=== PATIENT | female | born 1980 | race Caucasian/White ===

== ENCOUNTER 2016-12-04 02:37 | Day surgery (SDC) | payer OTHER ==
[2016-12-04] MEDS ORDERED: NS 0.9% 1000 ML* 1,000 ML IV ONE (03:23)
[2016-12-04 03:45] LABS: Add Diff/Slide Review? Slide Review Added; Comments Flag Yes; Hematocrit 36 % (35-47); Hemoglobin 12.2 g/dl (12.0-16.0); Mean Corpuscular HGB Conc 34 g/dl (31-36); Mean Corpuscular Hemoglobin 29 pg (27-31); Mean Corpuscular Volume 86 fL (80-97); Mean Platelet Volume 9 um3 (7.4-10.4); Red Blood Count 4.24 10^6/ul (4.0-5.4); Red Cell Distribution Width 15 % (10.5-15); White Blood Count 11.2 10^3/ul (3.5-10.8)
[2016-12-04 03:53] LABS: Albumin 3.9 g/dL (3.2-5.2); BUN/Creatinine Ratio 19.5 (8-20); C Reactive Protein 28.57 mg/L (< 5.00); Calcium 9.3 mg/dL (8.6-10.3); EGFR African American 102.6 (>60); EGFR Non-African American 79.8 (>60); Globulin 2.9 g/dL (2-4); Potassium 3.8 mmol/L (3.5-5.0); Total Bilirubin 1.1 mg/dL (0.2-1.0); Total Protein 6.8 g/dL (6.4-8.9)
[2016-12-04 04:28] LABS: Urine Bacteria Absent (Absent); Urine Bilirubin Negative (Negative); Urine Glucose Negative (Negative); Urine Nitrite Negative (Negative)
--- NOTE | 2016-12-04 05:32 | ED ---
Mulugeta Tello Aidan, scribed for Don Madera on 12/04/16 at 0347 . Abdominal Pain/Female - HPI Summary HPI Summary: 36 y/o female presents to the ED with a complaint of acute, constant, moderate, right-sided abdominal pain that began 2 days ago and became much more severe last night. Associated symptoms include nausea and vomiting last night and 2 nights ago. The patient is 8 weeks and had her last menstrual period on October 09. Denies any vaginal bleeding or discharge. Hx of cholecystectomy. - History of Current Complaint Chief Complaint: EDAbdPain Stated Complaint: 8WKS PREG//ADB PAIN Time Seen by Provider: 12/04/16 03:05 Hx Obtained From: Patient, Family/Mold Hoister Hx Last Menstrual Period: October 09 ?: Yes Onset/Duration: Sudden Onset, Lasting Days, Still Present Timing: Constant Severity Initially: Moderate Severity Currently: Moderate Pain Intensity: 8 Pain Scale Used: 0-10 Numeric Location: Discrete At: RUQ, Discrete At: RLQ Radiates: No Character: Sharp Aggravating Factor(s): Other: - unknown Alleviating Factor(s): Other: - unknown Associated Signs and Symptoms: Positive: Nausea, Vomiting - Risk Factors Ovarian Torsion Risk Factor: Reproductive Age Allergies/Adverse Reactions: Allergies Allergy/AdvReac Type Severity Reaction Status Date / Time Penicillin G Allergy Unknown Hives Verified 05/16/16 21:55 Sulfa Drugs Allergy Unknown Hives Verified 05/16/16 21:55 PMH/Surg Hx/FS Hx/Imm Hx Respiratory History: Reports: Hx Asthma Psychiatric History: Reports: Hx Anxiety - Surgical History Surgery Procedure, Year, and Place: cholecystectomy Infectious Disease History: No Infectious Disease History: Denies: Traveled Outside the [place] in Last 30 Days - Family History Known Family History: Positive: Hypertension - Social History Occupation: Employed Full-time Lives: With Family Alcohol Use: None Substance Use Type: Reports: None Smoking Status (MU): Never Smoked Tobacco Review of Systems Constitutional: Negative Eyes: Negative ENT: Negative Cardiovascular: Negative Respiratory: Negative Positive: Abdominal Pain, Vomiting, Nausea. Negative: Diarrhea Genitourinary: Negative Musculoskeletal: Negative Skin: Negative Neurological: Negative Psychological: Normal All Other Systems Reviewed And Are Negative: Yes Physical Exam Triage Information Reviewed: Yes Vital Signs On Initial Exam: Initial Vitals Temp Pulse Resp BP Pulse Ox 98.2 F 108 20 125/81 98 12/04/16 02:42 12/04/16 02:42 12/04/16 02:42 12/04/16 02:42 12/04/16 02:42 Vital Signs Reviewed: Yes Appearance: Positive: Well-Appearing, No Pain Distress Skin: Positive: Warm, Skin Color Reflects Adequate Perfusion, Dry Head/Face: Positive: Normal Head/Face Inspection Eyes: Positive: EOMI, BIB ENT: Positive: Normal ENT inspection Neck: Positive: Supple, Nontender Respiratory/Lung Sounds: Positive: Clear to Auscultation, Breath Sounds Present Cardiovascular: Positive: RRR, Pulses are Symmetrical in both Upper and Lower Extremities Abdomen Description: Positive: Soft. Negative: Nontender - tenderness in RLQ and RUQ Bowel Sounds: Positive: Present Musculoskeletal: Positive: Strength/ROM Intact Neurological: Positive: Sensory/Motor Intact, Alert, Oriented to Person Place, Time Psychiatric: Positive: Affect/Mood Appropriate AVPU Assessment: Alert - Mary Coma Scale Coma Scale Total: 15 Diagnostics - Vital Signs Vital Signs Temp Pulse Resp BP Pulse Ox 12/04/16 03:00 103 128/76 95 12/04/16 02:54 123 96 12/04/16 02:52 110/53 12/04/16 02:42 98.2 F 108 20 125/81 98 - Laboratory Result Diagrams: 12/04/16 03:15 12/04/16 03:15 Lab Statement: Any lab studies that have been ordered have been reviewed, and results considered in the medical decision making process. - Ultrasound No standard instances Ultrasound Interpretation: Positive (See Comments) - TRANSVAGINAL US FINDINGS: THERE IS NO IUP. THERE IS A LIVE RIGHT TUBAL ECTOPIC WITH ESTIMATED AGE 7 WEEKS 5 DAYS AND HEART RATE OF 165 BEATS PER MINUTE. 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 Associated symptoms include nausea and vomiting last night and 2 nights ago. The patient is 8 weeks and had her last menstrual period on October 09. Denies any vaginal bleeding or discharge. Hx of cholecystectomy. According to Dr. Selby, radiology results indicated a ruptured ectopic . The patient will be admitted to Dr. Selby for supervision. - Diagnoses Provider Diagnoses: Ruptured ectopic - Provider Notifications Discussed Care Of Patient With: Dr. Selby (RAG GRADER) Time Discussed With Above Provider: 04:19 - Dr. Selby informed Dr. Madera that the radiology results reveal a ruptured ectopic . The patient will be admitted to Dr. Selby. - Critical Care Time Critical Care Time: 30-74 min - ruptured ectopic Discharge - Discharge Plan Condition: Stable Disposition: ADMITTED TO [facility] Referrals: Blair Hodges MD [Primary Care Provider] - The documentation as recorded by the Mulugeta maharaj Aidan accurately reflects the service I personally performed and the decisions made by Santy yoder Emmanuel.
[2016-12-04] MEDS ORDERED: Succinylcholine* 20 MG/ML 10 ML VIAL ONE (05:44)
[2016-12-04] MEDS ORDERED: fentaNYL* 50 MCG/ML 2 ML VIAL (100 MCG VIAL) ONE ×3 (05:44→09:42)
[2016-12-04] MEDS ORDERED: Midazolam* 1 MG/ML 2 ML VIAL (2 MG) ONE (05:44)
[2016-12-04] MEDS ORDERED: Propofol* 10 MG/ML 20 ML BTL IV PUSH ONE (05:44)
[2016-12-04] MEDS ORDERED: Dexamethasone IV* 4 MG/ML 1 ML (4 MG) ONE ×2 (06:03)
[2016-12-04] MEDS ORDERED: Atracurium* 10 MG/ML 10 ML VIAL ONE (06:03)
[2016-12-04] MEDS ORDERED: Bupivacaine 0.25% SDV* 30 ML ONE (06:16)
[2016-12-04] MEDS ORDERED: oxyCODONE TAB* 5 MG TAB PO PRN (06:49)
[2016-12-04] MEDS ORDERED: Ketorolac INJ* 30 MG/ML 1 ML VIAL IV PRN (06:49)
[2016-12-04] MEDS ORDERED: Ondansetron INJ* 2 MG/ML VIAL IV PRN ×2 (06:49→07:58)
[2016-12-04] MEDS ORDERED: HYDROcodone/ACETAMIN 5-325 MG* 1 TAB PO PRN (06:49)
[2016-12-04] MEDS ORDERED: fentaNYL* 50 MCG/ML 2 ML VIAL (100 MCG VIAL) IV PRN (06:49)
[2016-12-04] MEDS ORDERED: diPHENhydraMINE IV* 50 MG/ML 1 ml VIAL (BENADRYL) IV PRN (06:49)
[2016-12-04] MEDS ORDERED: HYDROmorphone INJ* 1 MG/ML CARPUJECT SYRINGE IV PRN (06:49)
[2016-12-04] MEDS ORDERED: Ondansetron INJ* 2 MG/ML VIAL ONE ×2 (06:56→09:46)
[2016-12-04] MEDS ORDERED: Ibuprofen TAB* 600 MG PO PRN (07:47)
[2016-12-04] MEDS ORDERED: oxyCODONE/Acetamin 5/325 MG* TAB PO PRN ×2 (07:48→08:00)
--- NOTE | 2016-12-04 07:51 | RAD ---
HISTORY: Abdominal pain in a female COMPARISONS: No comparison pelvic ultrasounds from this TECHNIQUE: Multiple transverse and longitudinal ultrasound images were obtained of the pelvis using grayscale, color flow, spectral and M-mode sonographic imaging. FINDINGS: UTERUS: The uterus is normal in shape, size, contour, and echotexture. GESTATION: In the vicinity of the right adnexa/right cornua, there is a gestational sac with a single live intrauterine . The pole measures 1.4 cm corresponding to a gestational age of 7 weeks and 5 days. A yolk sac is visualized. No movement is observed. The cardiac activity measures 165 bpm. There is hyperechogenic fluid surrounding the adnexa and in the cul-de-sac. RIGHT OVARY: The right ovary measures 3.6 x 2.8 x 3.8 cm. An anechoic and avascular structure measuring up to 2.2 cm in the right ovary is most consistent with a corpus luteum. LEFT OVARY: The left ovary is not discretely visualized. IMPRESSION: A gestational sac in the right adnexa/right cornua is consistent with ectopic . No gestational sac is identified in the endometrial lumen. Hyperdense fluid in the cul-de-sac indicates partial rupture of the patient's likely ectopic .
[2016-12-04] MEDS ORDERED: Hydrocodone/APAP 5/300 (NF) TAB PO PRN (08:25)
[2016-12-04] MEDS ORDERED: HYDROcodone/ACETAMIN 5-325 MG* 1 TAB ONE (09:42)
[2016-12-04] MEDS ORDERED: Ketorolac INJ* 30 MG/ML 1 ML VIAL ONE (09:46)
[2016-12-04 10:00] VITALS: BP 113/66
[2016-12-04] MEDS ORDERED: PROCHLORPERAZINE INJ 5 MG/ML 2 ML VIAL ONE (10:14)
--- NOTE | 2016-12-04 21:23 | OP ---
DATE OF OPERATION: 12/04/16 [facility] DATE OF : 84 SURGEON: Marcia Selby MD LADLE BUILDER: Taryn Langston MD ANESTHESIOLOGIST: Dr. Otoole. ANESTHESIA: General endotracheal anesthesia. PRE-OP DIAGNOSIS: Right ectopic . POST-OP DIAGNOSIS: Ruptured right ectopic . OPERATIVE PROCEDURE: Laparoscopic right salpingectomy. ESTIMATED BLOOD LOSS: Intraoperatively less than 50 cc; however, there was hemoperitoneum. The cul-de-sac was full of blood and clot and there was blood and clot throughout the abdomen on laparoscopy. URINE OUTPUT: 200 cc. PATHOLOGY SPECIMEN: Right fallopian tube with ectopic. COMPLICATIONS: None. COUNTS: Sponge, lap, and needle counts were correct x2. FINDINGS: A midline anteverted uterus. Right fallopian tube with large ectopic filling the entire ampulla and extending towards the isthmus with active bleeding. Normal-appearing right ovary. Normal-appearing left fallopian tube. Normal-appearing left ovary. Normal-appearing appendix. Gallbladder surgically absent. CONDITION: The patient tolerated the procedure well and was brought to the recovery room in stable condition. DESCRIPTION OF PROCEDURE: The patient was brought to the operating room and general anesthesia was found to be adequate. The patient was prepped and draped in the usual sterile fashion in a dorsal lithotomy position. Exam under anesthesia was performed. A speculum was placed in the vagina and a Hulka clamp was usually placed on the uterus. A Herrmann catheter was placed under sterile condition. A 10-mm skin incision was made in the infraumbilical fold after Marcaine was instilled. The fascia was identified, grasped between 2 Gurpreet clamps, and incised. The fascia was tagged with 0-Vicryl and UR6 needle. The blunt Mary 10-mm trocar and sleeve were placed. Correct placement was confirmed with the laparoscope. The patient was placed in Trendelenburg position. A 5-mm skin incision was made 2-cm above the symphysis pubis. Marcaine was instilled. A 5-mm trocar and sleeve were placed under direct visualization. A 5-mm skin incision was made in the right lower quadrant after Marcaine was instilled. Another 5-mm trocar and sleeve were placed in the right lower quadrant. The fallopian tube was identified and active bleeding was noted. The fallopian tube was excised using the LigaSure. The fallopian tube with ectopic content was placed in the endobag and removed under direct visualization. Excellent hemostasis was noted at the site. The hemoperitoneum was suctioned as much as possible using the suction real estate investor. Once again hemostasis was observed at the surgical site. The two 5-mm sleeves were removed under direct visualization. The 10-mm trocar was removed with the laparoscopic in place. The fascia was closed using 0 Vicryl. No defect was palpated and the skin was closed 4-0 sutures. Steri-Strips were applied and the Hulka clamp was removed from the cervix. The Herrmann was removed and the patient was brought to the recovery room, awake and in stable condition. [id number]/[facility] #: [id number] OLEGARIO
== END 2016-12-04 05:21 | disposition home or self-care (01) ==
LOC: ED 02:37 → OR 05:21
PROVIDERS: ATTEND Obstetrics & Gynecology
DX: O00.10 Tubal pregnancy without intrauterine pregnancy (principal); J45.909 Unspecified asthma, uncomplicated; E66.01 Morbid (severe) obesity due to excess calories; Z68.42 Body mass index [BMI] 45.0-49.9, adult
CPT/HCPCS: 36415; 76817; 80053; 81003; 81015; 83690; 84702; 85025; 85610; 85730; 86140; 86850; 86900; 86901; 86922; 87086; 88305; J0330; J0780; J1100; J1885; J2250; J2405; J2704; J3010

== ENCOUNTER 2017-06-03 18:41 | Emergency (ER) | payer OTHER ==
--- NOTE | 2017-06-03 20:00 | ED ---
Jeanine Tello Edward, scribed for Jimy Saenz MD on 06/03/17 at 1916 . GI/ HPI - HPI Summary HPI Summary: 36 y/o female presents ED c/o blood after using bathroom this evening, thinks it is vag bleed around 06:00 today. Patient states there was only one incidence. The patient is 12-weeks currently. Patient had a miscarriage year ago. PMHx 2 cysts @ L ovary. - History of Current Complaint Chief Complaint: EDOBProblems Time Seen by Provider: 06/03/17 19:10 Stated Complaint: 12 WEEKS PREG, POSSILBE BLEEDING Hx Obtained From: Patient Onset/Duration: Started Hours Ago Pain Intensity: 0 Associated Signs and Symptoms: Positive: Hematuria - Allergy/Home Medications Allergies/Adverse Reactions: Allergies Allergy/AdvReac Type Severity Reaction Status Date / Time Penicillin G Allergy Unknown Hives Verified 06/03/17 19:16 Sulfa Drugs Allergy Unknown Hives Verified 06/03/17 19:16 Home Medications: Home Medications Advair Diskus 250-50* 06/03/17 [History] Albuterol HFA INHALER* 06/03/17 [History] FLUoxetine* 06/03/17 [History] PMH/Surg Hx/FS Hx/Imm Hx Previously Healthy: No Respiratory History: Reports: Hx Asthma History: Reports: Other Problems/Disorders - 2 L ovarian cysts Neurological History: Reports: Hx Migraine Psychiatric History: Reports: Hx Anxiety - Surgical History Surgery Procedure, Year, and Place: cholecystectomy Infectious Disease History: No Infectious Disease History: Denies: Traveled Outside the [place] in Last 30 Days - Family History Known Family History: Positive: Hypertension - Social History Alcohol Use: None Hx Substance Use: No Substance Use Type: Reports: None Hx Tobacco Use: No Smoking Status (MU): Never Smoked Tobacco Review of Systems Constitutional: Negative Eyes: Negative ENT: Negative Cardiovascular: Negative Respiratory: Negative Gastrointestinal: Negative Positive: hematuria - one incidence Musculoskeletal: Negative Skin: Negative Neurological: Negative Psychological: Normal All Other Systems Reviewed And Are Negative: Yes Physical Exam Triage Information Reviewed: Yes Vital Signs On Initial Exam: Initial Vitals Temp Pulse Resp BP Pulse Ox 97.6 F 125 16 115/68 96 06/03/17 18:47 06/03/17 18:47 06/03/17 18:47 06/03/17 18:47 06/03/17 18:47 Vital Signs Reviewed: Yes Appearance: Positive: No Pain Distress, Obese Skin: Positive: Warm Head/Face: Positive: Normal Head/Face Inspection Eyes: Positive: BIB ENT: Positive: Hearing grossly normal Neck: Positive: Supple Cardiovascular: Positive: RRR Abdomen Description: Positive: Nontender - gravid, Soft Bowel Sounds: Positive: Present Musculoskeletal: Positive: Strength/ROM Intact Neurological: Positive: Alert, Oriented to Person Place, Time Diagnostics - Vital Signs Vital Signs Temp Pulse Resp BP Pulse Ox 06/03/17 18:47 97.6 F 125 16 115/68 96 - Laboratory Lab Statement: Any lab studies that have been ordered have been reviewed, and results considered in the medical decision making process. - Ultrasound No standard instances Ultrasound Interpretation: Positive (See Comments) - 1. THERE IS A SINGLE VIABLE INTRAUTERINE WITH AN ESTIMATED GESTATIONAL AGE OF 12 WEEKS 5 DAYS. 2. SMALL CRESCENT-LIKE COLLECTIONS ADJACENT TO THE GESTATIONAL SAC SUGGESTIVE OF SUBCHORIONIC HEMATOMAS. Ultrasound Interpretation Completed By: Radiologist Re-Evaluation - Re-Evaluation First Eval Change: Improved - results d/w pt, no further bleeding GIGU Course/Dx - Course Assessment/Plan: 36 y/o female is 12 weeks and comes in with one incident of blood in urine. US shows 1. THERE IS A SINGLE VIABLE INTRAUTERINE WITH AN ESTIMATED GESTATIONAL AGE OF 12. WEEKS 5 DAYS.2. SMALL CRESCENT-LIKE COLLECTIONS ADJACENT TO THE GESTATIONAL SAC SUGGESTIVE OF. SUBCHORIONIC HEMATOMAS. . 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 - Diagnoses Provider Diagnoses: Threatened Discharge - Discharge Plan Condition: Stable Disposition: HOME Patient Education Materials: Threatened Miscarriage (ED) Referrals: Karissa Peñaloza CNM [Bill Peddler] - 3 Days (F/u in 2-3 days please) The documentation as recorded by the Jeanine maharaj Edward accurately reflects the service I personally performed and the decisions made by Dany yoder David, MD.
--- NOTE | 2017-06-03 20:59 | RAD ---
INDICATION: , vaginal bleeding. COMPARISON: There are no prior studies available for comparison. TECHNIQUE: Multiple real-time transvaginal images of the pelvis were obtained. FINDINGS: This exam demonstrates an early intrauterine . The heart rate was 179 beats per minute. There are 2 small crescent-shaped collections adjacent to the gestational sac which are near fluid echogenicity measuring 3.7 x 2.7 x 1.0 and 2.0 x 5.0 x 0.8 cm each suggestive of with small subchorionic hematomas. The crown-rump length measured 6.21 cm corresponding to an estimated gestational age of 12 weeks 5 days. The right ovary measured 2.6 x 1.3 x 2.0 cm. The left ovary measured 3.8 x 3.0 x 4.4 cm. There is a 2.6 x 2.5 x 2.9 cm cyst within the left ovary most consistent with a corpus luteum cyst. No free intraperitoneal fluid is seen. IMPRESSION: 1. THERE IS A SINGLE VIABLE INTRAUTERINE WITH AN ESTIMATED GESTATIONAL AGE OF 12 WEEKS 5 DAYS. 2. SMALL CRESCENT-LIKE COLLECTIONS ADJACENT TO THE GESTATIONAL SAC SUGGESTIVE OF SUBCHORIONIC HEMATOMAS.
[2017-06-03 21:30] VITALS: BP 121/76
== END 2017-06-03 21:26 | disposition home or self-care (01) ==
LOC: ED 18:41
DX: O20.0 Threatened abortion (principal); R31.9 Hematuria, unspecified; Z3A.12 12 weeks gestation of pregnancy
CPT/HCPCS: 36415; 76801; 84702; 99282

== ENCOUNTER 2017-12-11 08:01 | Inpatient (IN) | payer OTHER ==
[2017-12-11] MEDS ORDERED: Oxytocin in LR* 20 UNITS/1,000 ML BAG IVPB SCH (09:00)
[2017-12-11 09:36] LABS: ABS Basophils 0.1 10^3/ul (0-0.2); ABS Eosinophils 0.1 10^3/ul (0-0.6); ABS Lymphocytes 1.4 10^3/ul (1.0-4.8); ABS Monocytes 0.6 10^3/ul (0-0.8); ABS Nucleated RBC 0 10^3/ul; Eosinophil % 0.7 % (0-6); Hematocrit 37 % (35-47); Hemoglobin 12.8 g/dl (12.0-16.0); Lymphocyte % 17.6 % (25-47); Mean Corpuscular HGB Conc 35 g/dl (31-36); Mean Corpuscular Hemoglobin 31 pg (27-31); Mean Corpuscular Volume 90 fL (80-97); Mean Platelet Volume 9 um3 (7.4-10.4); Nucleated Red Blood Cells % 0.1; Platelet Count 214 10^3/ul (150-450); Red Blood Count 4.12 10^6/ul (4.0-5.4); Red Cell Distribution Width 16 % (10.5-15); White Blood Count 8.1 10^3/ul (3.5-10.8)
[2017-12-11] MEDS ORDERED: Witch Hazel PAD* JAR TOPICAL PRN (16:26)
[2017-12-11] MEDS ORDERED: Dibucaine 1% 28.35 GM TUBE PR PRN (16:26)
[2017-12-11] MEDS ORDERED: Glycerin ADULT SUPP PR PRN (16:26)
[2017-12-11] MEDS ORDERED: Acetaminophen TAB* 325 MG PO PRN (16:26)
[2017-12-11] MEDS: Simethicone TAB* 80 MG TAB.CHEW PO SCH (17:30)
[2017-12-11] MEDS: Docusate CAP* 100 MG PO SCH (20:49)
[2017-12-11] MEDS: Ibuprofen TAB* 600 MG PO PRN (20:56)
[2017-12-12] MEDS: Ibuprofen TAB* 600 MG PO PRN ×4 (04:43→22:17)
[2017-12-12 08:13] LABS: ABS Basophils 0.1 10^3/ul (0-0.2); ABS Eosinophils 0.1 10^3/ul (0-0.6); ABS Lymphocytes 1.9 10^3/ul (1.0-4.8); ABS Monocytes 0.7 10^3/ul (0-0.8); ABS Neutrophils 7.7 10^3/ul (1.5-7.7); ABS Nucleated RBC 0 10^3/ul; Eosinophil % 0.6 % (0-6); Hematocrit 37 % (35-47); Hemoglobin 12.5 g/dl (12.0-16.0); Lymphocyte % 18.3 % (25-47); Mean Corpuscular HGB Conc 34 g/dl (31-36); Mean Corpuscular Hemoglobin 31 pg (27-31); Mean Corpuscular Volume 90 fL (80-97); Mean Platelet Volume 9 um3 (7.4-10.4); Nucleated Red Blood Cells % 0; Platelet Count 196 10^3/ul (150-450); Red Blood Count 4.09 10^6/ul (4.0-5.4); Red Cell Distribution Width 16 % (10.5-15); White Blood Count 10.5 10^3/ul (3.5-10.8)
[2017-12-12] MEDS: Docusate CAP* 100 MG PO SCH ×3 (08:43→22:18)
[2017-12-12] MEDS ORDERED: Ferrous Gluconate TAB* 324 MG TAB PO SCH (09:00)
[2017-12-12] MEDS: Simethicone TAB* 80 MG TAB.CHEW PO SCH (22:18)
[2017-12-13] MEDS: Ibuprofen TAB* 600 MG PO PRN (03:58)
[2017-12-13] MEDS: Docusate CAP* 100 MG PO SCH (08:55)
[2017-12-13 11:32] VITALS: BP 134/77
== END 2017-12-13 12:54 | disposition home or self-care (01) | DRG 560 ==
LOC: MCHOBOUT 08:01 → MCHOB 08:58
PROVIDERS: ADMIT Midwife; ATTEND Midwife
PROC: 10E0XZZ Delivery of Products of Conception, External Approach (ICD-10-PCS; principal; 2017-12-11)
PROC: 4A1HXCZ Monitoring of Products of Conception, Cardiac Rate, External Approach (ICD-10-PCS; 2017-12-11)
PROC: 0HQ9XZZ Repair Perineum Skin, External Approach (ICD-10-PCS; 2017-12-11)
PROC: 3E033VJ Introduction of Other Hormone into Peripheral Vein, Percutaneous Approach (ICD-10-PCS; 2017-12-11)
DX: O70.0 First degree perineal laceration during delivery (principal); Z37.0 Single live birth; Z88.0 Allergy status to penicillin; Z88.2 Allergy status to sulfonamides; Z3A.39 39 weeks gestation of pregnancy
CPT/HCPCS: 36415; 85025; 86850; 86900; 86901; A9270-GY

== ENCOUNTER 2019-03-20 10:02 | Day surgery (SDC) | payer OTHER ==
[~2019-03-20 10:02] MED LIST: Buffered Lidocaine 1% SYRIN* 1 ML/SYRINGE INTRADERM ONE; Lactated Ringers 1000 ML Bag* 1,000 ML IV SCH
[2019-03-20] MEDS ORDERED: Clindamycin 900 MG IVPREMIX(* 900 MG/50 ML SDV IV ONE (10:21)
[2019-03-20] MEDS ORDERED: Buffered Lidocaine 1% SYRIN* 1 ML/SYRINGE INTRADERM ONE (10:57)
[2019-03-20] MEDS ORDERED: Ondansetron INJ* 2 MG/ML VIAL IV PRN (11:41)
[2019-03-20] MEDS ORDERED: diPHENhydraMINE IV* 50 MG/ML 1 ml VIAL (BENADRYL) IV PRN (11:41)
[2019-03-20] MEDS ORDERED: Levalbuterol 0.63MG/3ML NEB* UNIT OF USE INH PRN (11:41)
[2019-03-20] MEDS ORDERED: Acetaminophen TAB* 325 MG PO PRN (11:41)
[2019-03-20] MEDS ORDERED: PROCHLORPERAZINE INJ 5 MG/ML 2 ML VIAL IV PRN (11:41)
[2019-03-20] MEDS ORDERED: fentaNYL* 50 MCG/ML 2 ML VIAL (100 MCG VIAL) IV PRN (11:41)
[2019-03-20] MEDS ORDERED: Naloxone* 0.4 MG/ML 1 ML VIAL IV PRN (11:41)
[2019-03-20] MEDS ORDERED: Midazolam* 1 MG/ML 2 ML VIAL (2 MG) ONE ×2 (12:04→12:55)
[2019-03-20] MEDS ORDERED: Famotidine IV* 10 MG/ML 2 ML (20 mg) ONE (12:45)
[2019-03-20] MEDS ORDERED: Ondansetron INJ* 2 MG/ML VIAL ONE (12:59)
[2019-03-20] MEDS ORDERED: Propofol* 10 MG/ML 20 ML BTL ONE (12:59)
[2019-03-20] MEDS ORDERED: fentaNYL* 50 MCG/ML 2 ML VIAL (100 MCG VIAL) ONE (13:02)
[2019-03-20] MEDS ORDERED: Lidocaine 2% PF * 5 ML VIAL ONE (13:02)
[2019-03-20 14:20] VITALS: BP 106/69
--- NOTE | 2019-03-20 19:54 | OP ---
CC: Jimy Sawant MD; Dr. Payal Irene* OPERATIVE REPORT: DATE OF OPERATION: 03/20/19 - SDS DATE OF : 84 SURGEON: Jimy Sawant MD MACHINE PIE MAKER: None. ANESTHESIOLOGIST: [place]. ANESTHESIA: LMAC. 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 OPERATIVE PROCEDURE: Placement of left subclavian 8-Hebrew PowerPort. DESCRIPTION OF PROCEDURE: The patient was supine on the operating room table. After adequate intravenous sedation, compression stockings, Angie Hugger warmer, and intravenous antibiotics, the left chest was prepped with antiseptic, draped in a sterile fashion. Local infiltrative anesthesia was administered. Approximately 3 cm incision was created. Inferior pocket was created. Subclavian venipuncture was carried out. Guidewire was passed under fluoroscopic guidance. Catheter passed through the peel-away introducer, measured and cut at 27 cm. It was attached to the port, which was sutured into pocket. This was sutured with 2-0 Prolene. The pocket was closed with 3-0 and 5-0 Vicryl followed by Steri-Strips. The port has good blood return. It was flushed with saline solution and heparinized solution. She tolerated this well. She was brought to Recovery in good condition. No complications. No drains. No pathologic specimens. Sponge and instrument counts correct. Estimated blood loss was 10 mL. [id number]/[facility] #: [id number] MTDD
== END 2019-03-20 15:03 | disposition home or self-care (01) ==
LOC: OR 10:02
PROVIDERS: ATTEND Surgery
DX: C50.211 Malignant neoplasm of upper-inner quadrant of right female breast (principal); Z88.0 Allergy status to penicillin; J45.909 Unspecified asthma, uncomplicated; E66.01 Morbid (severe) obesity due to excess calories; Z68.42 Body mass index [BMI] 45.0-49.9, adult; F41.8 Other specified anxiety disorders; I89.0 Lymphedema, not elsewhere classified
CPT/HCPCS: 71045; 76000; 81025; C1788; J1642; J2250; J2405; J2704; J3010

== ENCOUNTER 2019-05-13 10:01 | Emergency (ER) | payer OTHER ==
[2019-05-13] MEDS ORDERED: Metoclopramide IV* 5 MG/ML 2 ML VIAL IV ONE (10:33)
[2019-05-13] MEDS ORDERED: NS 0.9% 1000 ML** 2,000 ML IV ONE (10:42)
--- NOTE | 2019-05-13 10:57 | ED ---
Complex/Multi-Sys Presentation - HPI Summary HPI Summary: This patient is a 38 year old F with breast cancer receiving chemo, [facility] accompanied by with a chief complaint of nausea, and vomiting since 05/10/19, and inability to keep down even liquids. Pt describes vomit as liquid, and either a darkish brown or a yellow color. Pt reports feeling weak, having diarrhea described as liquid and brownish, yellow in color. Pt denies fever, LYN, dizziness, chest pain, cough, leg pain, calf pain, hematuria, and dysuria. Pt was originally supposed to go in and see Kristen Perez NP for labs the afternoon of 05/13/19. However this morning pt started vomiting a darkish brown liquid again, and Kristen Perez NP told then to come to the ED. She reports vomiting 8-9 times yesterday, and has not been able to keep anything down including jello and water. She only feels abdominal pain while feeling nauseous or vomiting. The abdominal pain is not in the lower abdomen, it is more central. reports pt has been feeling pain in flanks. 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 Pt does not know the names. Pt receives treatments every Sunday, has had three treatments so far, her last treatment was 05/07/19. Pt is not getting any radiation, as the tumor is getting smaller. Her doctor is worried about her white blood cell counts, and she has been given shots to bring up WBC. Pts last menstrual period was at the beginning of April, and this month she had some spotting , but her period has not come. Pt is on a variety of medication. Pt last took Zofran,and Compazine last night. Pt is also on Prozac, Singulair, Advair, and Albuterol. She has also been taking Levaquin for the last week for an upper respiratory infection, (that she believes came from daughters in school), to prevent pneumonia. Pt has a PMHx of asthma, anxiety, depression, migraines, ovarian cyst, UTIs, miscarriage, ectopic , Lymphedema in left leg. Pt has a PSHx of left shoulder surgery, knee surgery, ear surgery, heart surgery, gallbladder removal. Per triage, patient rates the pain 0/10 in severity. Vital signs while in room: HR 110 bpm, BP 118/91, O2 sat 97%. Home Medications Medication Instructions Recorded Confirmed Type Montelukast Sodium TAB* [Singulair 10 mg PO DAILY 12/08/17 05/13/19 History 10 MG TAB*] Dexamethasone TAB* [Decadron TAB*] 8 mg PO BID 05/13/19 05/13/19 History Fluoxetine HCl 80 mg PO DAILY 05/13/19 05/13/19 History Ondansetron TAB* [Zofran 4 MG Tab*] 4 mg PO Q4H PRN 05/13/19 05/13/19 History Prochlorperazine TAB* [Compazine 10 mg PO Q6H PRN 05/13/19 05/13/19 History Tab*] levoFLOXacin [Levofloxacin] 500 mg PO DAILY 05/13/19 05/13/19 History - History Of Current Complaint Chief Complaint: EDNauseaVomitDiarrh Time Seen by Provider: 05/13/19 10:25 Hx Obtained From: Patient Onset/Duration: Sudden Onset, Lasting Days - 05/10/18, Still Present Timing: Intermittent, Lasting: - Vomiting 8-9x a day, Days Severity Currently: Mild Severity Initially: Mild Location: Pain At: - Lower abdominal pain Character: Dull Aggravating Factor(s): Food, Liquids Alleviating Factor(s): Nothing Associated Signs And Symptoms: Positive: Weakness, Nausea, Vomiting, Diarrhea, Abdominal Pain, Immunocompromised - on chemo therapy, 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 Negative: Headache , Cough, Chest Pain, Dysuria, Fever Related History: Other - breast cancer on chemo - Allergies/Home Medications Allergies/Adverse Reactions: Allergies Allergy/AdvReac Type Severity Reaction Status Date / Time Sulfa (Sulfonamide Allergy Severe Hives Verified 05/13/19 10:06 Antibiotics) Penicillins Allergy Intermediate Hives Verified 05/13/19 10:06 Home Medications: Home Medications Dexamethasone TAB* [Decadron TAB*] 8 mg PO BID 05/13/19 [History Confirmed 05/13] Fluoxetine HCl 80 mg PO DAILY 05/13/19 [History Confirmed 05/13/19] Ondansetron TAB* [Zofran 4 MG Tab*] 4 mg PO Q4H PRN 05/13/19 [History Confirmed 05/13/19] Prochlorperazine TAB* [Compazine Tab*] 10 mg PO Q6H PRN 05/13/19 [History Confirmed 05/13/19] PMH/Surg Hx/FS Hx/Imm Hx Previously Healthy: No Endocrine/Hematology History: Denies: Hx Diabetes, Hx Thyroid Disease Cardiovascular History: Reports: Other Cardiovascular Problems/Disorders - Lymphedema in left leg Denies: Hx Hypertension, Hx Pacemaker/ICD Respiratory History: Reports: Hx Asthma History: Reports: Other Problems/Disorders - 2 L ovarian cysts, UTIs, miscarriage twins, ectopic Pg. Denies: Hx Kidney Infection, Hx Renal Disease Musculoskeletal History: Reports: Hx Arthritis Sensory History: Denies: Hx Contacts or Glasses, Hx Hearing Aid Opthamlomology History: Denies: Hx Contacts or Glasses Neurological History: Reports: Hx Migraine Psychiatric History: Reports: Hx Anxiety Denies: Hx Depression, Hx Panic Disorder, Other Psychiatric Issues/Disorders - Cancer History Cancer Type, Location and Year: 03/07/19 Rt BREAST - on chemo 05/13/19 Date and Location of Last Treatment: 05/07/19 Hx Chemotherapy: Yes Hx Radiation Therapy: No - Surgical History Surgery Procedure, Year, and Place: CHOLECYSTECTOMY. Lt KNEE - ARTHROSCOPIC. DILLON EARS - SEVERAL EUSTACHIAN TUBES. Lt FOOT - BUNIONECTOMY. Rt BREAST - BIOPSY - W/ CLIP PLACEMENT. Left shoulder. heart surgery. cholecystectomy Hx Anesthesia Reactions: Yes - nausea with gas Infectious Disease History: No Infectious Disease History: Denies: Traveled Outside the [place] in Last 30 Days - Family History Known Family History: Positive: Hypertension - Social History Lives: With Family Alcohol Use: None Hx Substance Use: No Substance Use Type: Reports: None Hx Tobacco Use: No Smoking Status (MU): Never Smoked Tobacco Have You Smoked in the Last Year: No Review of Systems Positive: Fatigue Negative: Chest Pain Negative: Cough Positive: Abdominal Pain, Vomiting, Diarrhea, Nausea Negative: burning, dysuria, hematuria Positive: Other - Neg - leg pain, calf pain Skin: Negative Neurological: Other - Neg - dizziness Psychological: Normal All Other Systems Reviewed And Are Negative: Yes Physical Exam - Summary Physical Exam Summary: Appearance: Ill-appearing, minimal pain distress, well-nourished Skin: Warm, color reflects adequate perfusion, dry Head: Normal Head/Face inspection, atraumatic, minimal hair Eyes: Conjunctiva clear ENT: Normal inspection Neck: Supple, no nodes, no JVD Respiratory: Lungs clear, normal breath sounds, no respiratory distress Cardio: RRR, No murmur, pulses normal, brisk capillary refill Abdomen: Soft, nontender, no rebound, no guarding, no masses, non-distended, no CVAT Bowel sounds: Present Musculoskeletal: Strength Intact/ROM intact, no calf tenderness, no edema. Psychological: Normal Neuro: Alert, muscle tone normal, no focal defici Triage Information Reviewed: Yes Vital Signs On Initial Exam: Initial Vitals Temp Pulse Resp BP Pulse Ox 96.4 F 127 16 125/96 96 05/13/19 10:03 05/13/19 10:03 05/13/19 10:03 05/13/19 10:03 05/13/19 10:03 Vital Signs Reviewed: Yes Diagnostics - Vital Signs Vital Signs Temp Pulse Resp BP Pulse Ox 05/13/19 10:33 112 118/91 97 05/13/19 10:32 108 96 05/13/19 10:03 96.4 F 127 16 125/96 96 - Laboratory Result Diagrams: 05/13/19 10:59 05/13/19 10:59 Lab Statement: Any lab studies that have been ordered have been reviewed, and results considered in the medical decision making process. - Radiology CXR Radiology Interpretation Completed By: Radiologist Summary of Radiographic Findings: CXR reveals, per radiologist, IMPRESSION: #. No evidence for pneumonia. #. No evidence for acute intrathoracic disease. ED physician has reviewed this radiology report. Re-Evaluation - Re-Evaluation First Eval Re-Evaluation Time: 15:07 Change: Improved Comment: Discussed results with pt, instructed on bland diet. Pt looks much better and feels much better after IV antiemetics and IV fluids. Denies abd pain. Afebrile. Complex Multi-Symp Course/Dx Course Of Treatment: 38 yo F with breast CA undergoing chemo therapy presents with N,V,D and inability to keep down food or liquids since 05/10/19 despite Compazine and Zofran at home. Pt is on day 7 of Levaquin for a URI. Pts physical exam revealed a normal soft abdomen without tenderness. CXR reveals, per radiologist, IMPRESSION: No evidence for pneumonia. No evidence for acute intrathoracic disease. Blood work was obtained. The abnormalities include WBC is 2.7,(not neutropenic) Chloride is 98, Glucose is 128, Lactic Acid is 2.2, Calcium is 10.6, Magnesium is 1.6, Total Bilirubin is 2.40, AST is 52, ALT is 74 , and Amylase is 19. UA was obtained. The abnormalities include urine protein is 2+, urine blood is 1+, Ur Leukocyte Esterase is Trace, Urince WBC is 2+, Urine RBC is 2+, Ur Squamous Epith Cells is Present, Ur Renal Epithelial Cell is Present, Hyaline Casts is present, and Urine Glucose is 1+. In the ED course the patient was given Reglan 10 mg IV, Zofran Inj 8 mg IV, and 2L IV fluids. Discussed patient care with Kristen Perez NP and she recommended hydrating pt, and said she would observationally admit pt if needed. Kristen noted that the bilirubin and LFT's are higher than they have been and she noted the WBC count. Kristen agreed with DC'ing the Levaquin, which may be playing a role in pt's vomiting. Discussed results and bland diet,and plan to discharge with patient and her . The patient is agreeable with this plan. Pt medications reviewed this visit. (the 4 chemo meds not known). Nurses notes reviewed. Allergies noted. - Diagnoses Differential Diagnoses/HQI/PQRI: Urinary Tract Infection, Other - chemotherapy induced vomiting, Levaquin induced vomiting, gastroenteritis Provider Diagnoses: Nausea and vomiting, Breast cancer in female, Leukopenia, Chemotherapy follow- up examination - Physician Notifications Discussed Care Of Patient With: Kristen Perez Time Discussed With Above Provider: 13:48 Instructed by Provider To: Other - Discussed patient care with Kristen Perez NP and she recommended hydrating pt, and said she would observationally admit pt if needed. Discharge - Sign-Out/Discharge Documenting (check all that apply): Patient Departure - Discharge Patient Received Moderate/Deep Sedation with Procedure: No - Discharge Plan Condition: Stable Disposition: HOME Prescriptions: Ondansetron ODT TAB* [Zofran 4 MG Odt TAB*] 8 mg PO Q6H PRN #20 tab.odt PRN Reason: Nausea Patient Education Materials: Acute Nausea and Vomiting (ED) Print Language: MACEDONIAN Referrals: Payal Irene MD [Medical Doctor] - (as scheduled, call for an appointment ) Blair Hodges MD [Primary Care Provider] - Additional Instructions: Dr. Wilburn and Kristen both recommend that you stop the Levaquin. Follow and bland diet and hydrate as much as possible. Take zofran or compazine on a regular basis for the next few days. You may have a urinary tract infection. We will contact you if you need an antibiotic, based on those results. Kristen has reviewed your labs. Your white blood cell count is a bit diminished, and your bilirubin has increased a bit. They will talk to you about this at your next appointment. Return to the ER if you have any new or worsening symptoms. - Billing Disposition and Condition Condition: STABLE Disposition: Home - Attestation Statements Document Initiated by Kali: Yes Documenting Forrestibe: Leigha Land Provider For Whom Kali is Documenting (Include Credential): Dr. Samira Wilburn MD Scribe Attestation: Leigha Tello scribed for Dr. Samira Wilburn MD on 05/14/19 at 1959. Scribe Documentation Reviewed: Yes Provider Attestation: The documentation as recorded by the Leigha maharaj accurately reflects the service I personally performed and the decisions made by , Dr. Samira Wilburn MD Status of Kali Document: Viewed
[2019-05-13 11:14] LABS: Hematocrit 38 % (35-47); Hemoglobin 13.6 g/dL (12.0-16.0); Mean Corpuscular HGB Conc 36 g/dL (31-36); Mean Corpuscular Hemoglobin 31 pg (27-31); Mean Corpuscular Volume 86 fL (80-97); Mean Platelet Volume 8.1 fL (7.4-10.4); Platelet Count 234 10^3/uL (150-450); Red Blood Count 4.43 10^6 /uL (3.70-4.87); Red Cell Distribution Width 18 % (10-15); White Blood Count 2.7 10^3/uL (3.5-10.8)
[2019-05-13 11:23] LABS: Urine Appearance Clear; Urine Bacteria Absent (Absent); Urine Bilirubin Negative (Negative); Urine Blood 1+ (Negative); Urine Color Amber; Urine Glucose 1+(50 mg/dL) (Negative); Urine Ketones Negative (Negative); Urine Nitrite Negative (Negative); Urine Protein 2+(100 mg/dL) (Negative); Urine Red Blood Cell 2+(6-10/hpf) (Absent); Urine Renal Epithelial Cells Present (Absent); Urine Specific Gravity 1.021 (1.010-1.030); Urine Squamous Epithelial Cell Present (Absent); Urine Urobilinogen Negative (Negative); Urine White Blood Cell 2+(11-20/hpf) (Absent)
[2019-05-13 11:25] LABS: Activated Partial Thrombo Time 35.9 seconds (26.0-38.0); INR 1.13 (0.82-1.09)
[2019-05-13 11:36] LABS: HCG Pregnancy 2.67 mIU/mL
[2019-05-13 11:38] LABS: Albumin 4.7 g/dL (3.2-5.2); Albumin/Globulin Ratio 1.6 (1-3); BUN/Creatinine Ratio 19.1 (8-20); C Reactive Protein 7.86 mg/L (<8.01); Calcium 10.6 mg/dL (8.6-10.3); EGFR African American 86.8 (>60); EGFR Non-African American 71.8 (>60); Magnesium 1.6 mg/dL (1.9-2.7); Potassium 3.6 mmol/L (3.5-5.0); Total Bilirubin 2.4 mg/dL (0.2-1.0); Total Protein 7.7 g/dL (6.4-8.9)
[2019-05-13 12:14] LABS: ABS Eosinophils 0.1 10^3/ul (0-0.6); ABS Monocytes 0.2 10^3/ul (0-0.8); ABS Neutrophils 1.5 10^3/ul (1.5-7.7); Lymphocyte % 36.8 %; Nucleated Red Blood Cells % 0.1
[2019-05-13] MEDS ORDERED: Ondansetron INJ* 2 MG/ML VIAL IV ONE (13:34)
[2019-05-13 15:27] VITALS: BP 108/85
--- NOTE | 2019-05-16 15:10 | PN ---
Progress Note - Progress Note Date of Service: 05/13/19 Note: Urine culture growing >100k staph epidermidis. Spoke with pt. today at 1423. She reports she was being treated with levaquin for UTI but it was making her vomiting so it was dc. Will try treating with macrobid based on culture. Will f.u with PCP. Pt. agrees with plan.
== END 2019-05-13 15:26 | disposition home or self-care (01) ==
LOC: ED 10:01
DX: R11.2 Nausea with vomiting, unspecified (principal); C50.919 Malignant neoplasm of unspecified site of unspecified female breast; D72.819 Decreased white blood cell count, unspecified; Z79.899 Other long term (current) drug therapy
CPT/HCPCS: 36415; 71045; 80053; 81003; 81015; 82150; 82550; 83605; 83690; 83735; 84702; 85025; 85610; 85730; 86140; 87077; 87086; 87186; 96374; 96375; 99283; J2405; J2765

== ENCOUNTER 2019-06-26 22:19 | Emergency (ER) | payer OTHER ==
[2019-06-26 23:26] LABS: Hematocrit 32 % (35-47); Hemoglobin 11.2 g/dL (12.0-16.0); Mean Corpuscular HGB Conc 35 g/dL (31-36); Mean Corpuscular Hemoglobin 33 pg (27-31); Mean Corpuscular Volume 96 fL (80-97); Mean Platelet Volume 9.4 fL (7.4-10.4); Platelet Count 137 10^3/uL (150-450); Red Blood Count 3.38 10^6 /uL (3.70-4.87); Red Cell Distribution Width 21 % (10-15); White Blood Count 7.9 10^3/uL (3.5-10.8)
[2019-06-26] MEDS ORDERED: Ondansetron INJ* 2 MG/ML VIAL IV ONE (23:33)
[2019-06-26 23:37] LABS: Activated Partial Thrombo Time 34.4 seconds (26.0-38.0); INR 1.13 (0.82-1.09)
[2019-06-26 23:38] LABS: Albumin 4.9 g/dL (3.2-5.2); Albumin/Globulin Ratio 1.7 (1-3); BUN/Creatinine Ratio 10.6 (8-20); Calcium 10.7 mg/dL (8.6-10.3); EGFR African American 59.8 (>60); EGFR Non-African American 49.4 (>60); Globulin 2.9 g/dL (2-4); Total Bilirubin 1.6 mg/dL (0.2-1.0); Total Protein 7.8 g/dL (6.4-8.9)
[2019-06-26 23:40] LABS: Troponin I 0.01 ng/mL (<0.04)
[2019-06-26] MEDS ORDERED: Lactated Ringers 1000 ML Bag* 1,000 ML IV ONE (23:45)
--- NOTE | 2019-06-26 23:47 | ED ---
Shortness of Breath - HPI Summary HPI Summary: The patient is a 38 y/o F presenting to [facility] accompanied by family with a chief complaint of SOB worsening throughout the day while at rest and with exertion. She reports that she has been unable to walk far secondary to difficulty with breathing. She endorses N/V as well. Patient is currently getting chemotherapy for breast cancer. Last chemo treatment was 06/18/19. She is not on blood thinners. Recent labs have shown her hemoglobin trending downwards and her platelet levels have been fluctuating up and down. She has also been having left leg swelling, but none today. US for clots was done after last treatment on 06/18. No FMHx of breast cancer. Patient has had normal urination and bowel movements. Recent PET scan was negative. No Hx of metastatic disease. Hx of lymphedema. On triage, pain is denied, nothing is noted to aggravate/ alleviate Sx. Home medications and allergies are reviewed. - History of Current Complaint Chief Complaint: EDShortnessOfBreath Time Seen by Provider: 06/26/19 23:19 Hx Obtained From: Patient Onset/Duration: Lasting Days Current Severity: None Aggravating Factors: Nothing Alleviating Factors: Nothing Associated Signs & Symptoms: Edema - since resolved - Allergy/Home Medications Allergies/Adverse Reactions: Allergies Allergy/AdvReac Type Severity Reaction Status Date / Time Sulfa (Sulfonamide Allergy Severe Hives Verified 05/13/19 10:06 Antibiotics) Penicillins Allergy Intermediate Hives Verified 05/13/19 10:06 Home Medications: Home Medications Diphenoxylat/Atrop 2.5-0.025M* [Lomotil TAB*] 2 tab PO TID PRN 06/26/19 [ History Confirmed 06/26/19] Fluticasone-Salmeterol 500-50* [Advair Diskus 500-50*] 1 puff INH BID 06/26/19 [ History Confirmed 06/26/19] Magnesium Oxide TAB* [MagOx 400 TAB*] 400 mg PO DAILY 06/26/19 [History Confirmed 06/26/19] Meclizine TAB* [Antivert 12.5 TAB*] 25 mg PO TID PRN 06/26/19 [History Confirmed 06/26/19] PMH/Surg Hx/FS Hx/Imm Hx Endocrine/Hematology History: Denies: Hx Diabetes, Hx Thyroid Disease Cardiovascular History: Reports: Other Cardiovascular Problems/Disorders - Lymphedema in left leg Denies: Hx Hypertension, Hx Pacemaker/ICD Respiratory History: Reports: Hx Asthma History: Reports: Other Problems/Disorders - 2 L ovarian cysts, UTIs, miscarriage twins, ectopic Pg. Denies: Hx Kidney Infection, Hx Renal Disease Musculoskeletal History: Reports: Hx Arthritis, Other Musculoskeletal History - Lymphedema in left leg Sensory History: Denies: Hx Contacts or Glasses, Hx Hearing Aid Opthamlomology History: Denies: Hx Contacts or Glasses Neurological History: Reports: Hx Migraine Psychiatric History: Reports: Hx Anxiety Denies: Hx Depression, Hx Panic Disorder, Other Psychiatric Issues/Disorders - Cancer History Cancer Type, Location and Year: 03/07/19 Rt BREAST - on chemo 05/13/19 Hx Chemotherapy: Yes Hx Radiation Therapy: No - Surgical History Surgery Procedure, Year, and Place: CHOLECYSTECTOMY. Lt KNEE - ARTHROSCOPIC. DILLON EARS - SEVERAL EUSTACHIAN TUBES. Lt FOOT - BUNIONECTOMY. Rt BREAST - BIOPSY - W/ CLIP PLACEMENT. Left shoulder. heart surgery. cholecystectomy Hx Anesthesia Reactions: Yes - nausea with gas Infectious Disease History: No Infectious Disease History: Denies: Traveled Outside the [place] in Last 30 Days - Family History Known Family History: Positive: Hypertension - Social History Alcohol Use: None Hx Substance Use: No Substance Use Type: Reports: None Hx Tobacco Use: No Smoking Status (MU): Never Smoked Tobacco Have You Smoked in the Last Year: No Review of Systems Positive: Shortness Of Breath Positive: Vomiting, Nausea Genitourinary: Other - negative - abnormal BM and urination Negative: Edema All Other Systems Reviewed And Are Negative: Yes Physical Exam - Summary Physical Exam Summary: Constitutional: Well-developed, Well-nourished, Alert. Obese (-) Distressed Skin: Warm, Dry HENT: Normocephalic; Atraumatic Eyes: Conjunctiva normal Neck: Musculoskeletal ROM normal neck. (-) JVD, (-) Stridor, (-) Tracheal deviation Cardio: Rhythm regular, rate normal, Heart sounds normal; Intact distal pulses; The pedal pulses are 2+ and symmetric. Radial pulses are 2+ and symmetric. Pulmonary/Chest wall: Port access in left chest wall. Effort normal. (-) Respiratory distress, (-) Wheezes, (-) Rales Abd: Soft, (-) tenderness, (-) Distension, (-) Guarding, (-) Rebound Musculoskeletal: (+) Left calf tenderness (-) Edema Neuro: Alert, Oriented x3 Psych: Mood and affect Normal Triage Information Reviewed: Yes Vital Signs On Initial Exam: Initial Vitals Temp Pulse Resp BP Pulse Ox 96.8 F 123 18 131/94 98 06/26/19 22:21 06/26/19 22:21 06/26/19 22:21 06/26/19 22:21 06/26/19 22:21 Vital Signs Reviewed: Yes Diagnostics - Vital Signs Vital Signs Temp Pulse Resp BP Pulse Ox 06/26/19 23:22 97 18 121/90 95 06/26/19 22:21 96.8 F 123 18 131/94 98 - Laboratory Lab Results: Lab Results 06/26/19 06/26/19 06/26/19 Range/Units 22:45 22:45 22:45 WBC 7.9 (3.5-10.8) 10^3/uL RBC 3.38 L (3.70-4.87) 10^6 /uL Hgb 11.2 L (12.0-16.0) g/dL Hct 32 L (35-47) % MCV 96 (80-97) fL MCH 33 H (27-31) pg MCHC 35 (31-36) g/dL RDW 21 H (10-15) % Plt Count 137 L (150-450) 10^3/uL MPV 9.4 (7.4-10.4) fL Neut % (Auto) Pending Lymph % (Auto) Pending Morehouse % (Auto) Pending Eos % (Auto) Pending Baso % (Auto) Pending Absolute Neuts (auto) Pending Absolute Lymphs (auto) Pending Absolute Monos (auto) Pending Absolute Eos (auto) Pending Absolute Basos (auto) Pending Absolute Nucleated RBC Pending Nucleated RBC % Pending INR (Anticoag Therapy) 1.13 H (0.82-1.09) APTT 34.4 (26.0-38.0) seconds Sodium 137 (135-145) mmol/L Potassium Pending Chloride 97 L (101-111) mmol/L Carbon Dioxide 25 (22-32) mmol/L Anion Gap Pending BUN 13 (6-24) mg/dL Creatinine 1.23 H (0.51-0.95) mg/dL Est GFR ( Amer) 59.8 (>60) Est GFR (Non-Af Amer) 49.4 (>60) BUN/Creatinine Ratio 10.6 (8-20) Glucose 144 H (70-100) mg/dL Lactic Acid (0.5-2.0) mmol/L Calcium 10.7 H (8.6-10.3) mg/dL Total Bilirubin 1.60 H (0.2-1.0) mg/dL AST 84 H (13-39) U/L ALT 142 H (7-52) U/L Alkaline Phosphatase 142 H (34-104) U/L Troponin I 0.01 (<0.04) ng/mL Total Protein 7.8 (6.4-8.9) g/dL Albumin 4.9 (3.2-5.2) g/dL Globulin 2.9 (2-4) g/dL Albumin/Globulin Ratio 1.7 (1-3) 06/26/19 Range/Units 22:45 WBC (3.5-10.8) 10^3/uL RBC (3.70-4.87) 10^6 /uL Hgb (12.0-16.0) g/dL Hct (35-47) % MCV (80-97) fL MCH (27-31) pg MCHC (31-36) g/dL RDW (10-15) % Plt Count (150-450) 10^3/uL MPV (7.4-10.4) fL Neut % (Auto) Lymph % (Auto) Morehouse % (Auto) Eos % (Auto) Baso % (Auto) Absolute Neuts (auto) Absolute Lymphs (auto) Absolute Monos (auto) Absolute Eos (auto) Absolute Basos (auto) Absolute Nucleated RBC Nucleated RBC % INR (Anticoag Therapy) (0.82-1.09) APTT (26.0-38.0) seconds Sodium (135-145) mmol/L Potassium Chloride (101-111) mmol/L Carbon Dioxide (22-32) mmol/L Anion Gap BUN (6-24) mg/dL Creatinine (0.51-0.95) mg/dL Est GFR ( Amer) (>60) Est GFR (Non-Af Amer) (>60) BUN/Creatinine Ratio (8-20) Glucose (70-100) mg/dL Lactic Acid 1.7 (0.5-2.0) mmol/L Calcium (8.6-10.3) mg/dL Total Bilirubin (0.2-1.0) mg/dL AST (13-39) U/L ALT (7-52) U/L Alkaline Phosphatase (34-104) U/L Troponin I (<0.04) ng/mL Total Protein (6.4-8.9) g/dL Albumin (3.2-5.2) g/dL Globulin (2-4) g/dL Albumin/Globulin Ratio (1-3) Result Diagrams: 06/26/19 22:45 06/26/19 22:45 Lab Statement: Any lab studies that have been ordered have been reviewed, and results considered in the medical decision making process. - CT CHEST/THORAX CTA CT Interpretation Completed By: Radiologist Summary of CT Findings: IMPRESSION: 1. No visible acute pulmonary embolism. 2. No aortic dissection. THIS REPORT WAS REVIEWED BY DR. CH. - EKG 0002 Cardiac Rate: NL - rate of 88 BPM EKG Rhythm: Sinus Rhythm Summary of EKG Findings: EKG showed sinus rhythm with rate of 88 BPM, Q-waves in lead III, TWI in lead III. No STEMI. Course/Dx - Course Course Of Treatment: The patient is a 38 y/o F presenting [place] [facility] accompanied by family with a chief complaint of SOB worsening throughout the day while at rest and with exertion. She reports that she has been unable to walk far secondary to difficulty with breathing. She endorses N/V as well. Patient is currently getting chemotherapy for breast cancer. Last chemo treatment was . She is not on blood thinners. Recent labs have shown her hemoglobin trending downwards and her platelet levels have been fluctuating up and down. She has also been having left leg swelling, but none today. US for clots was done after last treatment on 06/18. On physical exam, left calf tenderness is noted. CTA CHEST/THORAX IMPRESSION: 1. No visible acute pulmonary embolism. 2. No aortic dissection. Labs showed a potassium of 2.7 and 1.3 magnesium. During ED course, patient was given potassium chloride 40 meq, potassium chloride 10 meq in 50 mls @ 50 mls/hr IV, four bags, Zofran 8 mg IV, magnesium sulfate 2 gm in 50 mls @ 50 mls/hr IVBP, lactated ringers and Pepcid 20 mg IV. Patient is signed out to Dr. Nascimento at 0700 06/27/19 shift change pending electrolyte replenishment and repeat labs. - Diagnoses Provider Diagnoses: Nausea and vomiting, Hyponatremia Discharge - Sign-Out/Discharge Documenting (check all that apply): Sign-Out Patient Signing out patient TO: Bill Nascimento - Discharge Plan Condition: Stable Referrals: Blair Hodges MD [Primary Care Provider] - - Billing Disposition and Condition Condition: STABLE - Attestation Statements Document Initiated by Scribe: Yes Documenting Scribe: Maki Barrow Provider For Whom Kali is Documenting (Include Credential): Dr. Jimy Ch MD Scribe Attestation: Maki Tello, scribed for Dr. Jimy Ch MD on 06/27 at 0711. Scribe Documentation Reviewed: Yes Provider Attestation: The documentation as recorded by the scribe, Maki Barrow accurately reflects the service I personally performed and the decisions made by me, Dr. Jimy Ch MD Status of Scribe Document: Viewed
[2019-06-26 23:50] LABS: Potassium 2.7 mmol/L (3.5-5.0)
[2019-06-27] MEDS ORDERED: Magnesium Sulfate 2 GM IV* 2 GM/50 ML BAG IVPB ONE (00:03)
[2019-06-27] MEDS ORDERED: Iodixanol* (CONTRAST) 320 MG/ML 100 ML SDV IV ONE (00:13)
[2019-06-27 00:15] LABS: ABS Lymphocytes 1.1 10^3/ul (1.0-4.8); ABS Monocytes 1.2 10^3/ul (0-0.8); ABS Neutrophils 5.7 10^3/ul (1.5-7.7); ABS Nucleated RBC 0.1 10^3/ul; Eosinophil % 0.1 %; Lymphocyte % 14.2 %; Nucleated Red Blood Cells % 1.6
[2019-06-27 00:18] LABS: Polychromasia 3+
[2019-06-27 00:26] LABS: Magnesium 1.3 mg/dL (1.9-2.7)
[2019-06-27] MEDS: Potassium Chlor TAB* 20 MEQ TAB.ER PO ONE ×2 (00:59→02:54)
[2019-06-27] MEDS: KCL 10 MEQ/50 ML IVPREMIX* 10 MEQ/50 ML BAG IV SCH ×4 (00:59→04:25)
[2019-06-27] MEDS ORDERED: Potassium Chloride* LIQUID 20 MEQ/15 ML UDC PO ONE (01:06)
[2019-06-27] MEDS ORDERED: Famotidine IV* 10 MG/ML 2 ML (20 mg) IV SLOW PU ONE (04:35)
[2019-06-27 07:17] LABS: BUN/Creatinine Ratio 10.7 (8-20); Calcium 9.8 mg/dL (8.6-10.3); EGFR African American 73.4 (>60); EGFR Non-African American 60.6 (>60); Magnesium 1.9 mg/dL (1.9-2.7); Potassium 3.5 mmol/L (3.5-5.0)
--- NOTE | 2019-06-27 07:30 | ED ---
Progress - Progress Note Progress Note: Patient is signed out from Dr. Nascimento at shift change 06/27/19 0700 pending electrolyte replenishment and repeat labs. Re-Evaluation - Re-Evaluation First Eval Re-Evaluation Time: 07:27 Change: Improved Comment: patient is feeling better. she has no complaints. since blood work is normal, patient will be discharged home with follow up from PCP Course/Dx - Course Course Of Treatment: Patient was signed out by Dr. Ch pending repeat for potassium level. Patient continues to feel better. Potassium level is 3.5 and magnesium is 1.9 which is within normal limits. Therefore the patient will be discharged home with follow-up with PCP. Patient is hemodynamically stable alert oriented 3 - Diagnoses Provider Diagnoses: Nausea and vomiting, Hypokalemia, Hypomagnesemia Discharge - Sign-Out/Discharge Documenting (check all that apply): Patient Departure - Discharge Patient Received Moderate/Deep Sedation with Procedure: No - Discharge Plan Condition: Stable Disposition: HOME Patient Education Materials: Hypokalemia (ED), Acute Nausea and Vomiting (ED), Hypomagnesemia (ED) Referrals: Blair Hodges MD [Primary Care Provider] - 3 Days Additional Instructions: Follow up with your primary care provider in 3 days. Return to the Emergency Department for new or worsening symptoms. - Attestation Statements Document Initiated by Scribe: Yes Documenting Scribe: Svitlana Sadler Provider For Whom Forrestibe is Documenting (Include Credential): Bill Nascimento MD Scribe Attestation: Svitlana Tello, scribed for Bill Nascimento MD on 06/27/19 at 1845. Status of Scribe Document: Ready
[2019-06-27 08:07] VITALS: BP 130/97
== END 2019-06-27 08:04 | disposition home or self-care (01) ==
LOC: ED 22:19
DX: R11.2 Nausea with vomiting, unspecified (principal); E87.6 Hypokalemia; E83.42 Hypomagnesemia; E87.1 Hypo-osmolality and hyponatremia; J45.909 Unspecified asthma, uncomplicated; F41.9 Anxiety disorder, unspecified; Z88.0 Allergy status to penicillin; Z88.2 Allergy status to sulfonamides; Z79.899 Other long term (current) drug therapy
CPT/HCPCS: 36415; 71275; 80048; 80053; 82803; 83605; 83735; 84484; 85025; 85610; 85730; 87040; 93005; 96365; 96366; 96375; 99285; A9270-GY; J1642; J2405; J3475; J3480; Q9967

== ENCOUNTER 2019-10-24 05:57 | Inpatient (IN) | payer OTHER ==
[~2019-10-24 05:57] MED LIST changes: -Lactated Ringers 1000 ML Bag* 1,000 ML IV SCH
[2019-10-24] MEDS ORDERED: Sodium Citrate/Citric Acid* 15 ML UDC PO ONE (06:00)
[2019-10-24] MEDS ORDERED: Sodium Citrate/Citric Acid* 15 ML UDC ONE (06:29)
[2019-10-24] MEDS ORDERED: Scopolamine 1.5 mg* PATCH ONE (06:29)
[2019-10-24] MEDS ORDERED: Dexamethasone IV* 4 MG/ML 1 ML (4 MG) ONE (06:29)
[2019-10-24] MEDS ORDERED: Heparin VIAL(*) 5000 UNITS/ML VIAL (FIVE THOUSAND) ONE (06:29)
[2019-10-24] MEDS ORDERED: Ondansetron INJ* 2 MG/ML VIAL ONE (06:29)
[2019-10-24] MEDS ORDERED: Clindamycin 900 MG/D5W BAG(*) 900 MG/50 ML BAG IVPB ONE (06:30)
[2019-10-24] MEDS ORDERED: Povidone Iodine 5% OPTH* 30 ML BTL ONE (06:44)
[2019-10-24] MEDS ORDERED: ceFAZolin VIAL(*) VIAL ONE (06:44)
[2019-10-24] MEDS ORDERED: Gentamicin ADULT (*) 40 MG/ML VIAL (2 ML VIAL = 80 MG) ONE (06:44)
[2019-10-24] MEDS ORDERED: Bacitracin INJECTION* 50,000 UNITS ONE (06:45)
[2019-10-24] MEDS ORDERED: Bupivacaine 0.25% SDV* 30 ML ONE (06:45)
[2019-10-24] MEDS: Lactated Ringers 1000 ML Bag* 1,000 ML IV SCH ×4 (06:47→23:21)
[2019-10-24] MEDS ORDERED: fentaNYL* 50 MCG/ML 5 ML VIAL (250 MCG VIAL) ONE (07:25)
[2019-10-24] MEDS ORDERED: Rocuronium* 10 MG/ML VIAL ONE (07:26)
[2019-10-24] MEDS ORDERED: Propofol* 10 MG/ML 20 ML BTL ONE (07:26)
[2019-10-24] MEDS ORDERED: Lidocaine 2% PF * 5 ML VIAL ONE (07:26)
[2019-10-24] MEDS ORDERED: Midazolam* 1 MG/ML 2 ML VIAL (2 MG) ONE (07:26)
[2019-10-24] MEDS ORDERED: DiMENhydriNATE IV* 50 MG/ML VIAL IV PUSH PRN (07:39)
[2019-10-24] MEDS ORDERED: Acetaminophen IV 1GM/100ML * 1,000 MG/100 ML VIAL IVPB ONE (07:39)
[2019-10-24] MEDS ORDERED: Naloxone* 0.4 MG/ML 1 ML VIAL IV PRN (07:39)
[2019-10-24] MEDS ORDERED: KETAMINE HCL* 50 MG/ML 10 ML VIAL ONE (08:16)
--- NOTE | 2019-10-24 10:44 | BRIEFOPN ---
Brief Operative/Procedure Note - Operation Details Pre-Op Diagnosis: right breast cancer Post-Op Diagnosis: same Procedures: Right Mastectomy and axillary dissection Surgeon(s)/Proceduralists: Surgeon: Carrillo. Asst: Zoey Anesthesia: general Estimated Blood Loss: 100cc Findings: see dictation Specimen(s)/Culture(s) Description: Right breast and axillary contents Complications: none
[2019-10-24] MEDS ORDERED: HYDROmorphone INJ1* 1 MG/ML SYRINGE IV PRN (10:50)
[2019-10-24] MEDS ORDERED: HYDROmorphone INJ1* 1 MG/ML SYRINGE IV SLOW PU PRN (10:50)
[2019-10-24] MEDS ORDERED: Ondansetron INJ* 2 MG/ML VIAL IV PRN (10:50)
[2019-10-24] MEDS ORDERED: ceFAZolin 2 GM PREMIX in ORs 2 GM/50 ML BAG IVPB SCH (12:00)
[2019-10-24] MEDS ORDERED: Acetaminophen IV 1GM/100ML * 100 ML ONE (12:15)
[2019-10-24] MEDS ORDERED: fentaNYL* 50 MCG/ML 2 ML VIAL (100 MCG VIAL) ONE ×3 (12:29→13:30)
[2019-10-24] MEDS: fentaNYL* 50 MCG/ML 2 ML VIAL (100 MCG VIAL) IV PRN ×4 (12:31→13:04)
[2019-10-24] MEDS ORDERED: HYDROmorphone INJ1* 1 MG/ML SYRINGE ONE (13:09)
[2019-10-24] MEDS: Ketorolac INJ* 30 MG/ML 1 ML VIAL IV PRN ×2 (14:32→22:08)
[2019-10-24] MEDS: Heparin VIAL(*) 5000 UNITS/ML VIAL (FIVE THOUSAND) SUBCUT SCH ×2 (14:41→22:04)
[2019-10-24] MEDS: Mometasone/Formoter 200/5 MDI INH SCH ×2 (16:13→20:09)
--- NOTE | 2019-10-24 16:25 | OP ---
OPERATIVE REPORT: DATE OF OPERATION: DATE OF : 84 SURGEON: Jojo Vizcaino MD. BANKING SERVICES OFFICER: PRE-OP DIAGNOSIS: Right breast cancer. POST-OP DIAGNOSIS: Right breast cancer. OPERATIVE PROCEDURE: Right mastectomy and axillary dissection. DICTATION ENDS HERE [id number]/[facility] #: [id number] MTDD
[2019-10-24] MEDS: HYDROmorphone INJ* 0.5 MG/0.5 ML SYRINGE IV SLOW PU PRN ×2 (16:34→20:32)
[2019-10-24] MEDS: Clindamycin 600 MG/D5W BAG(*) 600 MG/50 ML BAG IV SCH (16:58)
--- NOTE | 2019-10-24 17:32 | OP ---
CC: Dr. Jimy Gaines; [facility]; Dr. Blair Hodges * DATE OF OPERATION: 10/24/19 - ROOM #340 DATE OF : [birth year] SURGEON: Jojo Vizcaino MD CERTIFIED ALCOHOL AND DRUG COUNSELOR: EPHRAIM Porter PRE-OP DIAGNOSIS: Right breast cancer. POST-OP DIAGNOSIS: Right breast cancer. OPERATIVE PROCEDURE: Right mastectomy and axillary dissection. INDICATIONS: Ms. Gar is a 39-year-old woman who has undergone neoadjuvant chemotherapy, who is now ready for her definitive surgery. She has opted for mastectomy and reconstruction, which will be done by Dr. Gaines. DESCRIPTION OF PROCEDURE: On the morning of surgery, she was brought to the operating room, placed on the OR table in the supine position and given general anesthesia. The right breast and axilla were prepped and draped in the usual sterile fashion. An incision was then made in the superior breast following the line marked by Dr. Gaines. Subcutaneous tissue was then divided with electrocautery to create flaps medially to the sternum, superiorly to the clavicle, and laterally to the latissimus dorsi muscle. An inferior incision was then made creating an ellipse that encompassed the nipple-areolar complex. Subcutaneous tissue was again divided with electrocautery medially to the sternum, inferiorly to the rectus muscle, and laterally to the latissimus dorsi muscle. Once the flaps were completed, the breast was elevated off the chest wall using electrocautery. When the axillary tail was reached, the axillary dissection was begun. Here, the axillary contents were swept posteriorly from the pectoralis muscle, inferiorly from the axillary vein, and anteriorly from the latissimus dorsi muscle. This was done with primarily blunt dissection and some sharp dissection. Blood vessels and lymphatic vessels were clipped and the axillary contents were then swept inferiorly. The intercostal brachial nerve was noticed, but passed directly through the axillary contents, so it was sacrificed. The long thoracic nerve was identified and preserved. The thoracodorsal nerve was identified and preserved. Once the axillary contents were from all the investing structures, the breast and axillary contents were removed from the chest wall. The specimen was marked in the usual fashion and handed off. Hemostasis was assured with clips; and, once this appeared adequate and after the wound had been copiously irrigated with saline, the case was handed over to Dr. Gaines for reconstruction. The patient tolerated the mastectomy and axillary dissection well and was transferred to Dr. Gaines's care in a stable condition. [id number]/[facility] #: [id number] MTDAlicai
[2019-10-24] MEDS: Acetaminophen TAB* 325 MG PO PRN (18:53)
[2019-10-25] MEDS: Clindamycin 600 MG/D5W BAG(*) 600 MG/50 ML BAG IV SCH ×2 (01:12→09:15)
[2019-10-25] MEDS: Heparin VIAL(*) 5000 UNITS/ML VIAL (FIVE THOUSAND) SUBCUT SCH ×2 (06:11→15:21)
--- NOTE | 2019-10-25 08:52 | PN ---
Progress Note - Progress Note Date of Service: 10/25/19 SOAP: DISCHARGE NOTE Subjective: Moderate pain. Still using IV pain meds. Ambulating without difficulty Objective: Afebrile. VSS VAC Prevena Restor dressing intact with good seal. Right chest wall flat with no signs of hematoma and no erythema. MELCHOR's moderate, mostly serous. Assessment: Doing well POD#1 Plan: Switch over to oral pain meds. Increase activity. Possible discharge later today if pain controlled with oral meds. She will go home with both MELCHOR's and VAC in place. She has follow up scheduled in my office next week. Instructions given
[2019-10-25] MEDS ORDERED: Meclizine TAB* 12.5 MG PO PRN (08:59)
[2019-10-25] MEDS ORDERED: Ondansetron TAB* 4 MG PO PRN (08:59)
[2019-10-25] MEDS ORDERED: Ondansetron ODT TAB* 4 MG PO PRN (08:59)
[2019-10-25] MEDS ORDERED: Diphenoxylat/Atrop 2.5-0.025M* 1 TAB PO PRN (08:59)
[2019-10-25] MEDS ORDERED: Prochlorperazine TAB* 10 MG PO PRN (08:59)
[2019-10-25] MEDS ORDERED: Magnesium Oxide TAB* 400 MG PO SCH (09:00)
[2019-10-25] MEDS ORDERED: Montelukast Sodium TAB* 10 MG PO SCH (09:00)
[2019-10-25] MEDS ORDERED: FLUoxetine CAP* 20 MG PO SCH (09:00)
[2019-10-25] MEDS: Acetaminophen TAB* 325 MG PO PRN (09:16)
[2019-10-25] MEDS: Ketorolac INJ* 30 MG/ML 1 ML VIAL IV PRN (09:17)
[2019-10-25] MEDS: Mometasone/Formoter 200/5 MDI INH SCH (09:17)
[2019-10-25] MEDS: Lactated Ringers 1000 ML Bag* 1,000 ML IV SCH (09:19)
[2019-10-25] MEDS ORDERED: HYDROcodone/ACETAMIN 5-325 MG* 1 TAB PO PRN (10:47)
[2019-10-25] MEDS ORDERED: Ibuprofen TAB* 600 MG PO PRN (10:48)
[2019-10-25] MEDS: HYDROcodone/ACETAMIN 5-325 MG* 1 TAB PO PRN ×2 (11:14→15:47)
--- NOTE | 2019-10-25 11:54 | OP ---
CC: Dr. Jojo Vizcaino; [facility] Marin; Dr. Blair Hodges * DATE OF OPERATION: 10/24/19 - ROOM #340 DATE OF : [birth year] SURGEON: Jimy Gaines MD GROUP CONTROLLER: JUDD Johnson. SECOND PAPER FOLDING MACHINE OPERATOR: Joanna Leonard. ANESTHESIOLOGIST: Lambert Timmons DO ANESTHESIA: General. PRE-OP DIAGNOSIS: Right breast carcinoma. POST-OP DIAGNOSIS: Right breast carcinoma. OPERATIVE PROCEDURE: Immediate right breast reconstruction with tissue audit director and acellular dermal matrix sling. 1. Tissue audit director: [place] SMXP 150RH, serial number [id number], initial fill volume 150 cc. 2. Acellular dermal matrix: MTF [id number] pliable-shaped perforated medium, 11 x 20 cm. ESTIMATED BLOOD LOSS: Less than 50 cc from my part. SPECIMENS: None. DRAINS: Two Robin-Sidhu. COMPLICATIONS: None. INDICATIONS FOR OPERATION: The patient is a 39-year-old female who underwent right mastectomy and axillary dissection with Dr. Vizcaino this morning. After discussing the treatment alternatives, possible benefits and material risks in detail with the patient preoperatively, she elected to proceed at this time with immediate right breast reconstruction with a tissue audit director and acellular dermal matrix sling. DESCRIPTION OF PROCEDURE: Preoperative markings were made with the patient in the standing position in the preop holding area marking out the presternal midline and the right inframammary fold. In addition, in consultation with Dr. Vizcaino, the planned mastectomy incision was also marked out using transversely oriented fusiform elliptical incision lines to fully encompass the nipple- areolar complex. The patient was taken to the operating room by Dr. Vizcaino, and right mastectomy and axillary dissection was performed. The details of that procedure contained in the separate operative note dictation by Dr. Vizcaino. I then scrubbed into the procedure. Attention was turned towards the right mastectomy defect. The lateral border of the pectoralis major muscle was identified and the submacular pocket developed by sharp dissection with scissors and cautery. The inferior and inferomedial origins of the pectoralis major muscles were released by sharp dissection with electrocautery. Meticulous hemostasis was maintained throughout the procedure with fine-point coagulation current electrocautery. The acellular dermal matrix was then soaked in saline in the usual recommended fashion. The inferior edge of the acellular dermal matrix was then positioned along the planned inframammary fold and sutured into the chest wall with interrupted sutures of 2-0 Vicryl. The pocket was then irrigated with 5% Betadine and saline solution containing bacitracin and gentamicin. The pocket was then rinsed until clear with normal saline, and then irrigated with saline containing bacitracin and gentamicin, but no Betadine. A [place] style SMXP 150RH, saline tissue audit director was used. Air was removed from the audit director. The audit director was rinsed externally in saline containing gentamicin and bacitracin, and then placed into the pocket in the correct orientation. The suture tabs were secured to the chest wall with 3-0 Prolene sutures. The superior edge of the acellular dermal matrix was then sutured to the inferior and lateral margins of pectoralis major muscle using running 2-0 Vicryl. The lateral inferior margin of the acellular dermal matrix was sutured to the lateral chest wall in the region of the serratus fascia to reestablish the lateral mammary fold. Tissue audit director was filled to a total initial fill volume of 150 cc with sterile saline using a closed system in the usual fashion. Two large 10-mm flat Robin-Sidhu drains were placed, one between the mastectomy flap and the acellular dermal matrix, and the second in the axilla. These were brought out through separate stab wounds in the lateral chest skin and sutured to the skin with 3-0 Prolene sutures. The skin flaps were then approximated and closed with buried subcutaneous deep dermal sutures with 3-0 Vicryl. The skin was closed with running subcuticular 4 -0 Monocryl and several interrupted sutures with 5-0 Vicryl repeat. An excellent perfusion of the skin flaps was noted throughout the procedure at the end of the procedure. A VAC Prevena Restor Shireen Form dressing was applied to the right breast and a good seal verified. A 30 cc of 0.25% plain Marcaine was instilled through the Robin-Sidhu drains and left in place for 5 minutes and then bulb suction applied. The patient tolerated the procedure well. There were no complications. All counts were reported as correct at the end of the procedure. The patient was taken to the recovery area in stable postoperative condition. [id number]/[facility] #: [id number] [facility]
[2019-10-25 15:44] VITALS: BP 101/51
== END 2019-10-25 16:05 | disposition home or self-care (01) | DRG 362 ==
LOC: OR 05:57 → SSU 10:50
PROVIDERS: ADMIT Surgery; ATTEND Surgery
PROC: 0HHT0NZ Insertion of Tissue Expander into Right Breast, Open Approach (ICD-10-PCS; 2019-10-24)
PROC: 0HTT0ZZ Resection of Right Breast, Open Approach (ICD-10-PCS; principal; 2019-10-24 07:30)
PROC: 07T50ZZ Resection of Right Axillary Lymphatic, Open Approach (ICD-10-PCS; 2019-10-24 07:30)
DX: C50.911 Malignant neoplasm of unspecified site of right female breast (principal); Z68.41 Body mass index [BMI] 40.0-44.9, adult; C77.3 Secondary and unspecified malignant neoplasm of axilla and upper limb lymph nodes; E11.9 Type 2 diabetes mellitus without complications; J45.909 Unspecified asthma, uncomplicated; E66.9 Obesity, unspecified; M19.90 Unspecified osteoarthritis, unspecified site; G43.909 Migraine, unspecified, not intractable, without status migrainosus; I89.0 Lymphedema, not elsewhere classified; F32.9 Major depressive disorder, single episode, unspecified; F41.9 Anxiety disorder, unspecified; G89.29 Other chronic pain; M25.512 Pain in left shoulder; Z88.0 Allergy status to penicillin; Z88.2 Allergy status to sulfonamides
CPT/HCPCS: 88307; 94640; A9270-GY; J0690; J1100; J1170; J1580; J1644; J1885; J2250; J2405; J2704; J3010; J3490

== ENCOUNTER 2019-11-26 02:30 | Emergency (ER) | payer OTHER ==
--- OUTSIDE RECORDS SUMMARY | 2019-11-26 02:34 | XMS REPORT | Continuity of Care Document ---
:1980 External Reference #:[id number] Author Name Jojo Vizcaino MD (transmitted by agent of provider Aramis Oliver) Address [address] [place] [address] [place] [address] Care Team Providers Name Role Phone Blair Hodges MD - Internal Care Team Information Disease Education Specialist [phone] Medicine Problems Description No Information Available Social History Type Date Description Comments Sex Unknown ETOH Use Denies alcohol use Tobacco Use Start: Unknown Patient has never smoked Recreational Drug Use Denies Drug Use Smoking Status Reviewed: 10/15/19 Patient has never smoked Exercise Type/Frequency Exercises regularly Allergies, Adverse Reactions, Alerts Active Allergies Reaction Severity Comments Date Penicillin hives 03/06/2019 Sulfatrim hives 03/06/2019 Medications Active Medications SIG Qnty Indications Ordering Date Provider Mirena (52 MG) as directed Unknown 20mcg/24HR IUD Advair HFA 1 puff twice a day Unknown 45-21mcg/Act Aerosol Albuterol Sulfate 1 application every Unknown 4 hours as needed (2.5mg/3ML) 0.083% Nebulizer Cyclobenzaprine HCL 1 by mouth three Unknown 10mg times a day as Tablets needed Fluoxetine HCL 2 by mouth every Unknown 40mg day Capsules Diclofenac Sodium 1 tab by mouth Unknown 50mg daily Tablets DR Vitamin C Take 1 Tablet By Unknown 500mg Tablets Mouth Every Day Tab-A-Tha Take 1 Tablet By Unknown Tablets Mouth Every Day Bacitracin (External) Apply Presurgery as Unknown Directed 500Unit/GM Ointment Immunizations Description No Information Available Vital Signs Date Vital Result Comment 10/15/2019 8:54am Height 67 inches 5'7" Weight 251.00 lb Heart Rate 84 /min BP Systolic Sitting 120 mmHg BP Diastolic Sitting 82 mmHg Respiratory Rate 16 /min Body Temperature 97.7 F BMI (Body Mass Index) 39.3 kg/m2 08/21/2019 11:09am Weight 251.00 lb Heart Rate 76 /min BP Systolic 130 mmHg BP Diastolic 80 mmHg Respiratory Rate 16 /min Body Temperature 97.7 F Results Description No Information Available Procedures Date Code Description Status 08/19/2019 88896 ECHO Transthoracic, Real-Time 2D With Doppler And Color Completed Flow 08/19/2019 73554 ECHO Transthoracic, Real-Time 2D With Doppler And Color Completed Flow 06/12/2019 46127 ECHO Transthorasic Realtime 2D W Doppler & Color Flow Completed Hosp 03/11/2019 [id number] Mammogram Completed 03/05/2019 [id number] Mammogram Completed Medical Devices Description No Information Available Encounters Type Date Location Provider Dx Diagnosis Office Visit 08/21/2019 Surgical Jojo Vizcaino, C50.211 Malig [facility]m [facility] upper-inner quadrant of right female breast Assessments Date Code Description Provider 09/12/2019 C50.211 Malignant neoplasm of upper-inner Jojo Vizcaino MD quadrant of right female breast 08/21/2019 C50.211 Malignant neoplasm of upper-inner Jojo Vizcaino MD quadrant of right female breast 08/19/2019 Z08 Encounter for follow-up examination Traveling ECHO 1 after completed treatment for malignant neoplasm 08/19/2019 C50.211 Malignant neoplasm of upper-inner Eliel Mello M.D. quadrant of right female breast 08/19/2019 C50.211 Malignant neoplasm of upper-inner Traveling ECHO 1 quadrant of right female b 08/19/2019 Z13.6 Encounter for screening for Traveling ECHO 1 cardiovascular disorders 08/19/2019 Z01.810 Encounter for preprocedural Eliel Mello M.D. cardiovascular examination 08/19/2019 Z01.810 Encounter for preprocedural Traveling ECHO 1 cardiovascular examination 06/12/2019 Z01.818 Encounter for other preprocedural Barry Chris DO [facility] examination Plan of Treatment Future Appointment(s):10/29/2019 9:30 am - Jojo Vizcaino MD at [facility] AT [place]/13/2019 7:30 am - EPHRAIM Hall at [facility]10/24/2019 7:30 am - Jojo Vizcaino MD at [facility] Functional Status Description No Information Available Mental Status Description No Information Available Referrals Refer to Dr Reason for Referral Status Appt Date Jimy Gaines MD Pt. with right breast cancer treated with Closed neoadjuvant chemo, now thinking about mastectomy for surgical management [address] [facility] [facility] [place] [address] [place] [address] [phone]
--- OUTSIDE RECORDS SUMMARY | 2019-11-26 02:34 | XMS REPORT | Summary of Care ---
:1980 Author Organization [facility] Address [address] [address] Care Team Providers Name Role Phone Blair Hodges Primary Care Provider Reason for Visit Reason Comments Check Up pt has paperwork that needs to be completed for disability, migraine today Encounter Details Date Type Department Care Team Description 10/28/2019 Office Visit [place] Internal Blair Hodges, Major depressive disorder, single episode with anxious distress (Primary Dx); Medicine Chronic migraine without aura without status migrainosus, not intractable; [address] Lymphedema; [place] [address] [place] [address] Moderate persistent asthma without complication; [phone] Chronic bilateral low back pain without sciatica; Malignant neoplasm of upper-outer quadrant of right female breast, unspecified estrogen receptor status (HCC) Allergies Active Allergy Reactions Severity Noted Date Comments Penicillins Hives 07/11/2010 Sulfa Antibiotics Hives 07/11/2010 documented as of this encounter (statuses as of 10/28/2019) Medications Medication Sig Dispensed Refills Start Date End Date Status montelukast (SINGULAIR) Take 1 Tab by 30 Tab 5 09/26/2017 Active 10 MG Oral mouth DAILY. TabIndications: Moderate persistent asthma without complication trazodone (DESYREL) 50 Take 1-3 Tabs by 90 Tab 0 07/23/2018 Active MG Oral Tab mouth EVERY BEDTIME NEEDED (sleep). fluticasone-salmeterol Take 1 INHL by 60 Each 3 08/30/2018 Active diskus (ADVAIR DISKUS) inhalation TWICE 500-50 MCG/DOSE DAILY. Inhalation AEROSOL POWDER, BREATH ACTIVATED Vit-Fe Take 1 Tab by 30 Tab 4 08/30/2018 Active Fumarate-FA ( mouth DAILY. VITAMIN) 27-0.8 MG Oral Tab cyclobenzaprine Take 1 Tab by 30 Tab 5 08/30/2018 Active (FLEXERIL) 10 MG Oral mouth EVERY Tab BEDTIME. albuterol HFA Take 2 Puffs by 1 Inhaler 5 08/30/2018 Active (VENTOLIN) 108 (90 inhalation Base) MCG/ACT NEEDED (Shortness Inhalation Aero Soln of breath). ondansetron (ZOFRAN Take 1 Tab by 20 Tab 11 09/04/2018 Active ODT) 8 MG Oral TABLET mouth EVERY EIGHT DISPERSIBLE HOURS NEEDED for Nausea/Vomiting. diclofenac EC Take 50 mg by 90 Tab 11 09/04/2018 Active (VOLTAREN) 50 MG Oral mouth THREE TIMES Tab ECIndications: DAILY NEEDED Chronic left shoulder (pain). with food pain Fluoxetine HCl 40 MG Take 2 Caps by 180 Cap 1 05/27/2019 Active Oral CapIndications: mouth DAILY. Major depressive disorder, single episode with anxious distress documented as of this encounter (statuses as of 10/28/2019) Active Problems Problem Noted Date Chronic bilateral low back pain without sciatica 10/28/2019 Malignant neoplasm of upper-outer quadrant of right female breast 10/28/2019 Overview: Stage 2 S/p right MRM and LN dissection [facility] Dr Vizcaino [facility] 10/[address] Marin Chronic left shoulder pain 12/13/2016 Major depressive disorder, single episode with anxious distress 10/18/2016 Lymphedema 08/29/2016 Chronic migraine without aura without status migrainosus, not intractable Tear of lateral meniscus of left knee 04/20/2016 Tear of lateral cartilage or meniscus of knee, current 04/11/2016 Instability of left shoulder joint 12/01/2015 IBS (irritable bowel syndrome) 03/02/2015 Moderate persistent asthma 04/07/2011 Seasonal allergic rhinitis 04/07/2011 Morbid obesity due to excess calories 04/07/2011 Overview: This patient's BMI has been calculated and is above average, and BMI management plan is completed. General patient education discussion including: obesity- related excess mortality, weight loss link to reduction of risk factors for cardiac and other diseases Patient to keep a weight log that we will review at follow-up. S/P cholecystectomy 07/11/2010 Overview: S/p cholecystectomy age 18 documented as of this encounter (statuses as of 10/28/2019) Resolved Problems Problem Noted Date Resolved Date Left knee pain 03/13/2016 10/18/2016 Stiffness of left shoulder joint 03/01/2016 04/11/2016 Acute pain of left shoulder 06/23/2015 10/18/2016 Sprain of neck 06/04/2013 06/25/2014 Sprain of thoracic region 06/04/2013 06/25/2014 , first 03/19/2012 06/02/2013 documented as of this encounter (statuses as of 10/28/2019) Immunizations Name Administration Dates Next Due Influenza (IM) Preservative Free 09/24/2019, 07/23/2018, 09/12/2017, 08/19/2014 Influenza (IM) W/Pres 09/25/2016, 08/03/2015 PNEUMOCOCCAL POLYSACCHARIDE VACCINE 07/23/2018 documented as of this encounter Social History Tobacco Use Types Packs/Day Years Used Date Never Smoker Smokeless Tobacco: Never Used Alcohol Use Drinks/Week oz/Week Comments No 0 Standard drinks or equivalent 0.0 Sex Assigned at Date Recorded Not on file Job Start Date Occupation Industry Not on file Not on file Not on file Travel History Travel Start Travel End No recent travel history available. documented as of this encounter Last Filed Vital Signs Vital Sign Reading Time Taken Comments Blood Pressure 122/72 10/28/2019 10:35 AM EST Pulse 97 10/28/2019 10:35 AM EST Temperature 37 10/28/2019 10:35 AM EST C (98.6 F) Respiratory Rate - - Oxygen Saturation 96% 10/28/2019 10:35 AM EST Inhaled Oxygen Concentration - - Weight 116.1 kg (256 lb) 10/28/2019 10:35 AM EST Height 170.2 cm (5' 7") 10/28/2019 10:35 AM EST Body Mass Index 40.1 10/28/2019 10:35 AM EST documented in this encounter Progress Notes Blair Hodges MD - 10/28/2019 11:00 AM EST Patient here for two separate forms for disability application The first is two pages from [employer] this was filled out and signed and given to patient The second is from a law firm it is 4 pages and this was filled out and given to patient I spent 25 minutes with the patient, greater than half of this in direct face to face counseling addressing the current condition and the plan of care. ICD-9-CM ICD-10-CM 1. Major depressive disorder, single episode with anxious distress 296.20 F32.9 2. Chronic migraine without aura without status migrainosus, not intractable 346.70 G43.709 3. Lymphedema 457.1 I89.0 4. Moderate persistent asthma without complication 493.90 J45.40 5. Chronic bilateral low back pain without sciatica 724.2 M54.5 338.29 G89.29 6. Malignant neoplasm of upper-outer quadrant of right female breast, unspecified estrogen receptor status (HCC) 174.4 C50.411 Blair Hodges MDElectronically signed by Blair Hodges MD at 2018 11:22 AM ESTdocumented in this encounter Plan of Treatment Date Type Specialty Care Team Description 11/06/2019 Office Visit Internal Medicine Blair Hodges MD [address] [place] [address] [phone] Health Maintenance Due Date Last Done Comments DTaP/Tdap/Td Vaccines (1 - 1993 Tdap) PAP SMEAR 04/26/2013 04/26/2010 INFLUENZA VACCINE (#1) 2019 07/23/2018, 09/12/2017, 09/25/2016, Additional history exists DEPRESSION SCREENING 10/28/2020 10/28/2019 PNEUMOCOCCAL 0-64 YRS Completed 07/23/2018 HEPATITIS A IMMUNIZATION Aged Out No longer eligible SERIES based on patient's age to complete this topic HPV IMMUNIZATION SERIES Aged Out No longer eligible based on patient's age to complete this topic MENINGOCOCCAL VACCINE IMM Aged Out No longer eligible based on patient's age to complete this topic documented as of this encounter Goals Goal Patient Goal Associated Recent Patient-Stated? Author Type Problems Progress Depression Depression No Tracie, screen (PHQ-9) Blair Doll, total score < 5 Note: This is an individualized treatment (depression) goal for Agnes Cong: Displayed above is your goal for a depression screening (PHQ-9) score that would indicate good control of your depression. Keep a regular sleep schedule Lifestyle Blair Arthur MD Note: This is an individualized lifestyle goal for Agnes Gar: Please maintain a regular sleep schedule. This may help with some symptoms of depression. Take all prescribed medications as Self-management Blair Arthur MD directed Note: This is an individualized self-management goal for Agnes Gar: Please take all prescribed medications as directed. 1. Do not skip doses. If you cannot afford your medications, talk with your doctor. 2. Use a pill reminder system such as a pill box if needed. Your pharmacist can help you with this. 3. Contact your Pharmacy 5 days before your medication runs out. If you cannot take your medications for any reasons, talk with your doctor. 4. Please bring all of your medication bottles and inhalers (or a list of all your medications/inhalers) with you to every visit. Potential barriers to meeting all of your care plan goals will continue to be addressed on an ongoing basis. documented as of this encounter Results Not on filedocumented in this encounter Visit Diagnoses Diagnosis Major depressive disorder, single episode with anxious distress Chronic migraine without aura without status migrainosus, not intractable Chronic migraine without aura, without mention of intractable migraine without mention of status migrainosus Lymphedema Other lymphedema Moderate persistent asthma without complication Unspecified asthma Chronic bilateral low back pain without sciatica Malignant neoplasm of upper-outer quadrant of right female breast, unspecified estrogen receptor status (HCC) documented in this encounter Guarantor Name Account Type Relation to Date of Phone Billing Patient Address Cong[place] Personal/Family 1980 [address] [facility] [facility] (Home) [place], [place] [phone] [id number] (Work) documented as of this encounter
--- OUTSIDE RECORDS SUMMARY | 2019-11-26 02:34 | XMS REPORT | Continuity of Care Document ---
:1980 External Reference #:[id number] Author Name Jojo Vizcaino MD (transmitted by agent of provider Aramis Oliver) Address [address] [place] [address] [place] [address] Care Team Providers Name Role Phone Blair Hodges MD - Internal Care Team Information [place] [facility] Medicine Problems Description No Information Available Social History Type Date Description Comments Sex Unknown ETOH Use Denies alcohol use Tobacco Use Start: Unknown Patient has never smoked Recreational Drug Use Denies Drug Use Smoking Status Reviewed: 10/30/19 Patient has never smoked Exercise Type/Frequency Exercises [...] Available Vital Signs Date Vital Result Comment 10/30/2019 3:45pm Heart Rate 72 /min Respiratory Rate 18 /min Body Temperature 98.5 F 10/15/2019 8:54am Height 67 inches 5'7" Weight 251.00 lb Heart Rate 84 /min BP Systolic Sitting 120 mmHg BP Diastolic Sitting 82 mmHg Respiratory Rate 16 /min Body Temperature 97.7 F BMI (Body Mass Index) 39.3 kg/m2 Results Test Acquired Date Facility Test Result H/L Range Note Laboratory test 10/24/2019 [facility] Point of 167 mg/dL High 70-[address] [place] [address] [phone] Laboratory test 10/24/2019 [facility] Point of 119 mg/dL High 70-100 [address] [place] [address] [phone] CBC Auto Diff 10/15/2019 [facility] White Blood 5.5 10^3/uL Normal 3.5-10.[address] [place] [address] [phone] Red Blood Count 4.55 10^6/uL Normal 3.70-4.87 Hemoglobin 13.9 g/dL Normal 12.0-16.0 Hematocrit 40 % Normal 35-47 Mean Corpuscular Volume 88 fL Normal 80-97 Mean Corpuscular Hemoglobin 31 pg Normal 27-31 Mean Corpuscular HGB Conc 35 g/dL Normal 31-36 Red Cell Distribution Width 15 % Normal 10-15 Platelet Count 200 10^3/uL Normal 150-450 Mean Platelet Volume 7.7 fL Normal 7.4-10.4 Abs Neutrophils 3.2 10^3/uL Normal 1.5-7.7 Abs Lymphocytes 1.7 10^3/uL Normal 1.0-4.8 Abs Monocytes 0.4 10^3/uL Normal 0-0.8 Abs Eosinophils 0.1 10^3/uL Normal 0-0.6 Abs Basophils 0.0 10^3/uL Normal 0-0.2 Abs Nucleated RBC 0.0 10^3/uL Granulocyte % 58.0 % Lymphocyte % 30.7 % Monocyte % 7.9 % Eosinophil % 2.7 % Basophil % 0.7 % Nucleated Red Blood Cells % 0.2 Type & Screen 10/15/2019 [facility] Patient Blood Type B Positive [address] [place] [address] [phone] Antibody Screen NEGATIVE 1 Film Projector Operator: [id number] Film Projector Operator: [id number] Procedures Date Code Description Status 10/24/2019 57632 Mastectomy Mod Radical Not Including Pectoralis Major Completed Muscle 10/24/2019 65849 Mastectomy Mod Radical Not Including Pectoralis Major Completed Muscle 08/19/2019 21036 ECHO Transthoracic, Real-Time 2D With Doppler And Color Completed Flow 08/19/2019 21345 ECHO Transthoracic, Real-Time 2D With Doppler And Color Completed Flow 06/12/2019 83632 ECHO Transthorasic Realtime 2D W Doppler & Color Flow Completed Hosp 03/11/2019 [id number] Mammogram Completed 03/05/2019 [id number] Mammogram Completed Medical Devices Description No Information Available Encounters Type Date Location Provider Dx Diagnosis Office Visit 08/21/2019 Surgical Jojo Vizcaino, C50.211 Malig neoplm of 11:[facility] upper-inner quadrant of right female breast Assessments Date Code Description Provider 10/24/2019 C50.211 Malignant neoplasm of upper-inner [facility]RAIM [facility]ster[facility] quadrant of right female breast 10/24/2019 C50.211 Malignant neoplasm of upper-inner Jojo Vizcaino MD quadrant of right female breast 10/15/2019 C50.211 Malignant neoplasm of upper-inner Jojo Vizcaino MD quadrant of right female breast 10/15/2019 Z01.818 Encounter for other preprocedural Jojo Vizcaino MD examination 09/12/2019 C50.211 Malignant neoplasm of upper-inner Jojo [...] Encounter for other preprocedural Barry Chris DO [facility] examination Plan of Treatment 10/15/2019 - Jojo Chinchlila Carrillo, MDC50.211 Malignant neoplasm of upper-inner quadrant of right female breastFollow up:post opZ01.818 Encounter for other preprocedural examination Functional Status Description No Information Available Mental Status Description No Information Available Referrals Refer to Reason for Referral Status Appt Date Jimy Gaines MD Pt. with right breast cancer treated with Closed neoadjuvant chemo, now thinking about mastectomy for surgical management [address] [place] [address] [place] [address] [phone]
--- OUTSIDE RECORDS SUMMARY | 2019-11-26 02:34 | XMS REPORT | Summary of Care ---
:1980 Author Organization [facility] Address [address] [address] Care Team Providers Name Role Phone Blair Hodges Primary Care Provider Reason for Referral Refer to Department Only (Routine) Status Reason Specialty Diagnoses / Referred By Referred To Procedures Contact Contact Pending Review Physical Therapy Diagnoses Strain of thoracic region, initial encounter Chronic neck pain Berta Hodges MD Orthopaedics - [address] Therapy [place] [address] [address] Phone: [place], [place] [phone] Fax: Reason for Visit Reason Comments Neck Pain Neck and back pain thaat she has had for years. Dtarts n neck and goes down the middle of her back. Encounter Details Date Type Department Care Team Description 11/06/2019 Office Visit [facility] Blair Hodges, Strain of thoracic region, initial encounter (Primary Dx); Medicine Neck sprain, initial encounter; [address] [facility] Chronic neck pain; [place] [address] [place] [address] Chronic tension-type headache, not intractable; [phone] Migraine without aura and with status migrainosus, not intractable Allergies Active Allergy Reactions Severity Noted Date Comments Penicillins Hives 07/11/2010 Sulfa Antibiotics Hives 07/11/2010 documented as of this encounter (statuses as of 11/06/2019) Medications Medication Sig Dispensed Refills Start End Date Status Date montelukast Take 1 Tab by 30 Tab 5 Active (SINGULAIR) 10 MG mouth DAILY. 7 Oral TabIndications: Moderate persistent asthma without complication trazodone (DESYREL) Take 1-3 Tabs 90 Tab 0 Active 50 MG Oral Tab by mouth EVERY 8 BEDTIME NEEDED (sleep). fluticasone-salmeter Take 1 INHL by 60 Each 3 Active ol diskus (ADVAIR inhalation 8 DISKUS) 500-50 TWICE DAILY. MCG/DOSE Inhalation AEROSOL POWDER, BREATH ACTIVATED Vit-Fe Take 1 Tab by 30 Tab 4 Active Fumarate-FA mouth DAILY. 8 ( VITAMIN) 27-0.8 MG Oral Tab albuterol HFA Take 2 Puffs 1 Inhaler 5 Active (VENTOLIN) 108 (90 by inhalation 8 Base) MCG/ACT NEEDED Inhalation Aero Soln (Shortness of breath). ondansetron (ZOFRAN Take 1 Tab by 20 Tab 11 Active ODT) 8 MG Oral mouth EVERY 8 TABLET DISPERSIBLE EIGHT HOURS NEEDED for Nausea/Vomitin g. Fluoxetine HCl 40 MG Take 2 Caps by 180 Cap 1 Active Oral CapIndications: mouth DAILY. 9 Major depressive disorder, single episode with anxious distress indomethacin Take 1 Cap by 30 Cap 3 Active (INDOCIN) 50 MG Oral mouth TWO 9 Cap TIMES DAILY NEEDED (migraine). with food diazepam (VALIUM) 5 Take 0.5-1 25 Tab 0 Active MG Oral Tab Tabs by mouth 9 EVERY BEDTIME NEEDED (muscle spasm). Max Daily Amount: 5 mg. zolmitriptan (ZOMIG) Take 0.5 Tabs 12 Tab 3 Active 5 MG Oral Tab by mouth TWO 9 TIMES DAILY NEEDED (migraine). cyclobenzaprine Take 1 Tab by 30 Tab 5 11/06/20 Discontinued (FLEXERIL) 10 MG mouth EVERY 8 19 (Provider Oral Tab BEDTIME. Discontinued) diclofenac EC Take 50 mg by 90 Tab 11 11/06/20 Discontinued (VOLTAREN) 50 MG mouth THREE 8 19 (Provider Oral Tab TIMES DAILY Discontinued) ECIndications: NEEDED (pain). Chronic left with food shoulder pain documented as of this encounter (statuses as of 11/06/2019) Active Problems Problem Noted Date Chronic bilateral low back pain without sciatica 10/28/2019 Malignant neoplasm of upper-outer quadrant of right female breast 10/28/2019 Overview: Stage 2 S/p right MRM and LN dissection [facility] Dr Vizcaino [facility] 10/[address] [place] Chronic left shoulder [...] as of this encounter (statuses as of 11/06/2019) Resolved Problems Problem Noted Date Resolved Date Left knee pain 03/13/2016 10/18/2016 Stiffness of left shoulder joint 03/01/2016 04/11/2016 Acute pain of left shoulder 06/23/2015 10/18/2016 Sprain of neck 06/04/2013 06/25/2014 Sprain of thoracic region 06/04/2013 06/25/2014 , first 03/19/2012 06/02/2013 documented as of this encounter (statuses as of 11/06/2019) Immunizations Name Administration Dates Next Due Influenza [...] Sign Reading Time Taken Comments Blood Pressure 138/72 11/06/2019 10:49 AM EST Pulse 64 11/06/2019 10:49 AM EST Temperature - - Respiratory Rate - - Oxygen Saturation - - Inhaled Oxygen Concentration - - Weight 111.1 kg (245 lb) 11/06/2019 10:49 AM EST Height 170.2 cm (5' 7") 11/06/2019 10:49 AM EST Body Mass Index 38.37 11/06/2019 10:49 AM EST documented in this encounter Patient Instructions Patient InstructionsBlair Hodges MD - 11/06/2019 10:20 AM ESTStop diclofenac and cyclobenzaprine Use diazepam 5 mg 1/2 or 1 pill at bedtime for muscle relaxer Use indomethacin twice daily As needed headache Use zolmitriptan twice daily As needed headache Physical therapy call [phone] for this documented in this encounter Progress Notes Blair Hodges MD - 11/06/2019 10:20 AM EST PATIENT: Agnes Gar : 1980 DATE OF SERVICE: 11/06/2019 CHIEF COMPLAINT: Chief Complaint Patient presents with Neck Pain Neck and back pain thaat she has had for years. Dtarts n neck and goes down the middle of her back. Subjective HISTORY OF PRESENT ILLNESS: Agnes Gar is a 39-y.o. female. HPI Chronic neck and thoracic spine ache and now with acute sprain and spasm Radiates into the left side of head and triggers a migraine headache despite use of over the counterexcedrin migraine No new lifting no trauma or falls no low back pain no sciatica symptoms Uses diclofenac and cyclobenzaprine as needed no relief pain in thoracic spine and cervical spine is 6/10 She has lost weight due to chemotherapy and no appetite now off chemo denies nausea and vomitting Wt Readings from Last 3 Encounters: 11/06/19 245 lb (111.1 kg) 10/28/19 256 lb (116.1 kg) 09/04/18 295 lb (133.8 kg) Patient Active Problem List Diagnosis S/P cholecystectomy Moderate persistent asthma Seasonal allergic rhinitis Morbid obesity due to excess calories (HCC) IBS (irritable bowel syndrome) Instability of left shoulder joint Tear of lateral cartilage or meniscus of knee, current Tear of lateral meniscus of left knee Lymphedema Chronic migraine without aura without status migrainosus, not intractable Major depressive disorder, single episode with anxious distress Chronic left shoulder pain Chronic bilateral low back pain without sciatica Malignant neoplasm of upper-outer quadrant of right female breast (HCC) Family History Problem Relation Age of Onset Cancer Brother Diabetes Brother Cancer Maternal Uncle Cancer Maternal Aunt Cancer Paternal Uncle Heart Disease Mother Diabetes Sister Anesth Problems No family history Arthritis No family history Clotting Disorder No family history Kidney Disease No family history Thyroid Disease No family history Hypertension No family history Current Outpatient Medications Medication Sig albuterol HFA (VENTOLIN) 108 (90 Base) MCG/ACT Inhalation Aero Soln Take 2 Puffs by inhalation NEEDED (Shortness of breath). diazepam (VALIUM) 5 MG Oral Tab Take 0.5-1 Tabs by mouth EVERY BEDTIME NEEDED (muscle spasm). Max Daily Amount: 5 mg. Fluoxetine HCl 40 MG Oral Cap Take 2 Caps by mouth DAILY. fluticasone-salmeterol diskus (ADVAIR DISKUS) 500-50 MCG/DOSE Inhalation AEROSOL POWDER, BREATH ACTIVATED Take 1 INHL by inhalation TWICE DAILY. indomethacin (INDOCIN) 50 MG Oral Cap Take 1 Cap by mouth TWO TIMES DAILY NEEDED (migraine). with food montelukast (SINGULAIR) 10 MG Oral Tab Take 1 Tab by mouth DAILY. ondansetron (ZOFRAN ODT) 8 MG Oral TABLET DISPERSIBLE Take 1 Tab by mouth EVERY EIGHT HOURS NEEDED for Nausea/Vomiting. Vit-Fe Fumarate-FA ( VITAMIN) 27-0.8 MG Oral Tab Take 1 Tab by mouth DAILY. trazodone (DESYREL) 50 MG Oral Tab Take 1-3 Tabs by mouth EVERY BEDTIME NEEDED (sleep). zolmitriptan (ZOMIG) 5 MG Oral Tab Take 0.5 Tabs by mouth TWO TIMES DAILY NEEDED (migraine). No current facility-administered medications for this visit. Allergies Allergen Reactions Pcn [Penicillins] Hives Sulfa Antibiotics Hives Social History Socioeconomic History Marital status: Spouse name: Not on file Number of children: Not on file Years of education: Not on file Highest education level: Not on file Occupational History Not on file Social Needs Financial resource strain: Not on file Food insecurity Worry: Not on file Inability: Not on file Transportation needs Medical: Not on file Non-medical: Not on file Tobacco Use Smoking status: Never Smoker Smokeless tobacco: Never Used Substance and Sexual Activity Alcohol use: No Alcohol/week: 0.0 standard drinks Drug use: No Sexual activity: Yes Partners: Male Lifestyle Physical activity Days per week: Not on file Minutes per session: Not on file Stress: Not on file Relationships Social connections Talks on phone: Not on file Gets together: Not on file Attends gnosticist service: Not on file Active member of club or organization: Not on file Attends meetings of clubs or organizations: Not on file Relationship status: Not on file Intimate partner violence Fear of current or ex partner: Not on file Emotionally abused: Not on file Physically abused: Not on file Forced sexual activity: Not on file Other Topics Concern Back Care Not Asked Bike Helmet Not Asked Blood Transfusions Not Asked Caffeine Concern Not Asked Exercise No Hobby Hazards Not Asked International Travel Not Asked Service Not Asked Occupational Exposure Not Asked Seat Belt Not Asked Self-Exams Not Asked Sleep Concern Not Asked Special Diet Not Asked Stress Concern Not Asked Weight Concern Not Asked Social History Narrative Lives in [facility] ROS no vomit no focal neuro symptoms Objective PHYSICAL EXAM: VITALS: BP 138/72 | Pulse 64 | Ht 5' 7" (1.702 m) | Wt 245 lb (111.1 kg) | BMI 38.37 kg/m Body mass index is 38.37 kg/m. Physical Exam cervical and thoracic paraspinal muscle tenderness and localized spasm left trapezius muscle At C3-6 level Reduced range of motion cervical spine flexion and extension no spinous process tenderness Hair and scalp exam show hair growth appears normal, no significant localized or diffuse alopecia orthinning, no scalp lesions or scalp dermatitis. Cranial nerves are normal. Fundi are normal with sharp disc margins, no papilledema, hemorrhages or exudates noted. VIRGEN. EOM's intact. Neck supple. No cranial or carotid bruits. Good carotid upstroke. DTR's, motor power and sensation normal and symmetric. Babinski sign absent. Mental status normal. Gait and station normal. Cerebellar function is normal. ASSESSMENT / IMPRESSION: ICD-9-CM ICD-10-CM 1. Strain of thoracic region, initial encounter stop diclofenac and cyclobenzaprine trial diazepam low dose at bedtime and refer to physical therapy 847.1 S29.019A REFER TO PHYSICAL THERAPY / REHAB 2. Neck sprain, initial encounter physical therapy 847.0 S13.9XXA 3. Chronic neck pain physical therapy 723.1 M54.2 REFER TO PHYSICAL THERAPY / REHAB 338.29 G89.29 4. Chronic tension-type headache, not intractable trial indomethacin twice daily As needed 339.12 G44.229 5. Migraine without aura and with status migrainosus, not intractable use zomig as needed 346.12 G43.001 Patient Instructions Stop diclofenac and cyclobenzaprine Use diazepam 5 mg 1/2 or 1 pill at bedtime for muscle relaxer Use indomethacin twice daily As needed headache Use zolmitriptan twice daily As needed headache Physical therapy call [phone] for this Blair Hodges MD 11/06/2019 11:38 documented in this encounter Plan of Treatment Name Type Priority Associated Diagnoses Order Schedule REFER TO PHYSICAL Referral Routine Strain of thoracic Ordered: 11/06/2019 THERAPY / REHAB region, initial encounter Chronic neck pain Health Maintenance Due Date Last Done Comments DTaP/Tdap/Td Vaccines (1993 Tdap) PAP SMEAR 04/26/2013 04/26/2010 DEPRESSION SCREENING 10/28/2020 10/28/2019 PNEUMOCOCCAL 0-64 YRS Completed 07/23/2018 INFLUENZA VACCINE Completed 09/24/2019, 07/23/2018, 09/12/2017, Additional history exists HEPATITIS A IMMUNIZATION Aged Out No longer [...] is an individualized treatment (depression) goal for February: Displayed above is your goal for a depression screening (PHQ-9) score that would indicate good control of your depression. Keep a regular sleep schedule Lifestyle Blair Arthur MD Note: This is an individualized lifestyle goal for February: Please maintain a regular sleep schedule. This may help with some symptoms of depression. Take all prescribed medications as Self-management Blair Arthur MD directed Note: This is an individualized self-management goal for February: Please take all prescribed medications as directed. [...] filedocumented in this encounter Visit Diagnoses Diagnosis Strain of thoracic region, initial encounter Neck sprain, initial encounter Chronic neck pain Cervicalgia Chronic tension-type headache, not intractable Chronic tension type headache Migraine without aura and with status migrainosus, not intractable Migraine without aura, without mention of intractable migraine with status migrainosus documented in this encounter Guarantor Name Account Type Relation to Date of Phone Billing Patient Address CongAgnes Personal/Family 1980 [address] [facility] [facility] (Home) [place], [place] [phone] [id number] (Work) documented as of this encounter
[2019-11-26 03:04] LABS: ABS Basophils 0.1 10^3/ul (0-0.2); ABS Eosinophils 0.2 10^3/ul (0-0.6); ABS Lymphocytes 1.6 10^3/ul (1.0-4.8); ABS Monocytes 0.5 10^3/ul (0-0.8); ABS Neutrophils 4.5 10^3/ul (1.5-7.7); Eosinophil % 2.3 %; Hematocrit 36 % (35-47); Hemoglobin 12.1 g/dL (12.0-16.0); Lymphocyte % 23.4 %; Mean Corpuscular HGB Conc 34 g/dL (31-36); Mean Corpuscular Hemoglobin 29 pg (27-31); Mean Corpuscular Volume 86 fL (80-97); Mean Platelet Volume 7.7 fL (7.4-10.4); Platelet Count 222 10^3/uL (150-450); Red Blood Count 4.17 10^6 /uL (3.70-4.87); Red Cell Distribution Width 15 % (10-15); White Blood Count 6.9 10^3/uL (3.5-10.8)
[2019-11-26 03:22] LABS: Albumin 4.3 g/dL (3.2-5.2); Albumin/Globulin Ratio 1.5 (1-3); BUN/Creatinine Ratio 23.9 (8-20); Calcium 10.2 mg/dL (8.6-10.3); EGFR African American 83.1 (>60); EGFR Non-African American 68.7 (>60); Globulin 2.8 g/dL (2-4); Potassium 3.6 mmol/L (3.5-5.0); Total Bilirubin 1.1 mg/dL (0.2-1.0); Total Protein 7.1 g/dL (6.4-8.9)
--- NOTE | 2019-11-26 03:26 | ED ---
HPI Chest Pain - HPI Summary HPI Summary: 39 year old female presents to the ED with a chief complaint of right-sided chest pain starting 1045 tonight. The pain radiates down her right arm and is worse when she breathes deeply. She denies abdominal pain, fever, nausea, and vomiting. Patient does not smoke tobacco, drink alcohol, or do recreational drugs. History of asthma. Patient has breast cancer and is getting chemotherapy for it. She gets chronic migraines. She recently started indomethacin and Imitrex for migraines as well as Valium as needed. All medications reviewed. Allergies noted. - History of Current Complaint Chief Complaint: EDChestPainROMI Time Seen by Provider: 11/26/19 02:44 Hx Obtained From: Patient Hx Last Menstrual Period: October 09 Onset/Duration: Started Hours Ago, Still Present Timing: Constant, Lasting Hours Initial Severity: Severe Current Severity: Severe Pain Intensity: 10 Pain Scale Used: 0-10 Numeric Chest Pain Location: Right Anterior Chest Pain Radiates: Yes Chest Pain Radiates To:: Arm - right Aggravating Factor(s): Deep Breaths Alleviating Factor(s): Nothing Associated Signs and Symptoms: Positive: Chest Pain, Headaches. Negative: Fever , Chills, Nausea, Abdominal Pain, Vomiting - Additional Pertinent History Primary Care Physician: [id number] - Allergy/Home Medications Allergies/Adverse Reactions: Allergies Allergy/AdvReac Type Severity Reaction Status Date / Time Sulfa (Sulfonamide Allergy Severe Hives Verified 11/27/19 17:35 Antibiotics) Penicillins Allergy Intermediate Hives Verified 11/27/19 17:35 Home Medications: Home Medications Indomethacin 50 mg PO BID WITH MEALS PRN 11/26/19 [History Confirmed 11/26/19] PMH/Surg Hx/FS Hx/Imm Hx Endocrine/Hematology History: Denies: Hx Bone Marrow Disease, Hx Diabetes, Hx Sickle Cell Disease, Hx Thyroid Disease, Hx Anemia Cardiovascular History: Reports: Other Cardiovascular Problems/Disorders - Lymphedema in left leg Denies: Hx Angina, Hx Cardiomegaly, Hx Congestive Heart Failure, Hx Coronary Artery Disease, Hx Hypertension, Hx Pacemaker/ICD, Hx Peripheral Vascular Disease, Hx Rheumatic Fever, Hx Valvular Heart Disease Respiratory History: Reports: Hx Asthma Denies: Hx Pulmonary Edema, Hx Pulmonary Embolism, Hx Sleep Apnea, Other Respiratory Problems/Disorders GI History: Denies: Hx Cirrhosis, Hx Crohn's Disease, Hx Gastroesophageal Reflux Disease , Hx Hiatal Hernia, Hx Irritable Bowel, Hx Jaundice, Hx Ulcer, Other GI Disorders History: Reports: Other Problems/Disorders - 2 L ovarian cysts, UTIs, miscarriage twins, ectopic Pg. Denies: Hx Kidney Infection, Hx Kidney Stones, Hx Renal Disease Musculoskeletal History: Reports: Hx Arthritis, Other Musculoskeletal History - Lymphedema in left leg Denies: Hx Bursitis, Hx Tendonitis Sensory History: Denies: Hx Cataracts, Hx Contacts or Glasses, Hx Glaucoma, Hx Hearing Aid Opthamlomology History: Denies: Hx Cataracts, Hx Contacts or Glasses, Hx Glaucoma Neurological History: Reports: Hx Migraine Denies: Hx Headaches, Hx Nerve Disease, Hx Seizures, Other Neuro Impairments/ Disorders Psychiatric History: Reports: Hx Anxiety Denies: Hx Depression, Hx Panic Disorder, Other Psychiatric Issues/Disorders - Cancer History Cancer Type, Location and Year: 03/07/19 Rt BREAST - on chemo 05/13/19 Hx Chemotherapy: Yes Hx Radiation Therapy: No - Surgical History Surgery Procedure, Year, and Place: CHOLECYSTECTOMY. Lt KNEE - ARTHROSCOPIC. DILLON EARS - SEVERAL EUSTACHIAN TUBES. Lt FOOT - BUNIONECTOMY. Rt BREAST - BIOPSY - W/ CLIP PLACEMENT. Left shoulder. heart surgery. cholecystectomy Hx Anesthesia Reactions: Yes - nausea with gas Infectious Disease History: No Infectious Disease History: Denies: Hx Hepatitis, Traveled Outside the [place] in Last 30 Days - Family History Known Family History: Positive: Hypertension - Social History Alcohol Use: None Hx Substance Use: No Substance Use Type: Reports: None Hx Tobacco Use: No Smoking Status (MU): Never Smoked Tobacco Have You Smoked in the Last Year: No - Additional Comments History Additional Comments: PMHx: Breast CA Asthma Cholecystectomy Review of Systems Negative: Fever, Chills Positive: Chest Pain Negative: Abdominal Pain, Vomiting, Nausea Positive: Myalgia - Right arm Positive: Headache All Other Systems Reviewed And Are Negative: Yes Physical Exam - Summary Physical Exam Summary: General: Obese female. No acute distress. HEENT: Normocephalic, Atraumatic. Eyes: Conjuctiva normal, PERRL. Ears: TMs within normal limits. Nares: (-) discharge, (-) erythema. Oropharynx: Clear, mucous membranes moist, (-) exudates. Neck: Soft, FROM, (-) lymphadenopathy, (-) thyromegaly, (-) JVD. Cardiovascular: Normal sinus rhythm, (-) murmur. Tenderness on right sternal border. Lungs: Equally decreased breath sounds bilaterally (-) wheezes, (-) rales, (-) rhonchi. Abdomen: Soft, non-tender, non-distended, (-) organomegaly, normal bowel sounds. Back: (-) CVA tenderness Extremities: No edema. Skin: Warm, dry, (-) rash. Neuro: Alert and oriented x3, no focal deficits. Psychiatric: Mood normal, affect normal. Triage Information Reviewed: Yes Vital Signs On Initial Exam: Initial Vitals Temp Pulse Resp BP Pulse Ox 97.1 F 105 18 124/84 98 11/26/19 02:39 11/26/19 02:39 11/26/19 02:39 11/26/19 02:39 11/26/19 02:39 Vital Signs Reviewed: Yes Procedures - Sedation Patient Received Moderate/Deep Sedation with Procedure: No Diagnostics - Vital Signs Vital Signs Temp Pulse Resp BP Pulse Ox 11/26/19 02:39 97.1 F 105 18 124/84 98 - Laboratory Lab Results: Lab Results 11/26/19 Range/Units 02:57 WBC 6.9 (3.5-10.8) 10^3/uL RBC 4.17 (3.70-4.87) 10^6 /uL Hgb 12.1 (12.0-16.0) g/dL Hct 36 (35-47) % MCV 86 (80-97) fL MCH 29 (27-31) pg MCHC 34 (31-36) g/dL RDW 15 (10-15) % Plt Count 222 (150-450) 10^3/uL MPV 7.7 (7.4-10.4) fL Neut % (Auto) 65.5 % Lymph % (Auto) 23.4 % [place] % (Auto) 7.7 % Eos % (Auto) 2.3 % Baso % (Auto) 1.1 % Absolute Neuts (auto) 4.5 (1.5-7.7) 10^3/ul Absolute Lymphs (auto) 1.6 (1.0-4.8) 10^3/ul Absolute Monos (auto) 0.5 (0-0.8) 10^3/ul Absolute Eos (auto) 0.2 (0-0.6) 10^3/ul Absolute Basos (auto) 0.1 (0-0.2) 10^3/ul Absolute Nucleated RBC 0.0 10^3/ul Nucleated RBC % 0.0 Result Diagrams: 11/26/19 02:57 11/26/19 02:57 Lab Statement: Any lab studies that have been ordered have been reviewed, and results considered in the medical decision making process. - Radiology CXR Radiology Interpretation Completed By: ED Physician Summary of Radiographic Findings: No acute abnormalities. Pending official read. An ED physician has reviewed and interpreted this scan. - CT Chest Thorax CT CT Interpretation Completed By: Radiologist Summary of CT Findings: No evidence of pulmonary embolus. An ED physician has reviewed this report. Re-Evaluation - Re-Evaluation First Eval Re-Evaluation Time: 04:44 Change: Unchanged Comment: D-Dimer is 890 so we must conduct a CTA to rule out PE. Discussed these findings with patient, who understands. She informed me that she still has severe pain, even after pain meds. I ordered fentanyl for the pain. Chest Pain Course/Dx - Course Course Of Treatment: 39-year-old female with known breast cancer presents with right chest pain. Patient had right breast removed last month. Has started chemotherapy. Has developed severe right-sided chest pain today that radiates to the right arm. Worse with deep breath. No fevers. No cough. Patient given fentanyl for pain. D-dimer is elevated. High risk so CTA was performed which was negative for PE. Patient discharged home. Advised anti- inflammatories. Ice. Rest. Follow-up with PCP. Follow-up sooner for any worsening symptoms. - Diagnoses Provider Diagnoses: Right-sided chest pain Discharge ED - Sign-Out/Discharge Documenting (check all that apply): Patient Departure - discharge home - Discharge Plan Condition: Stable Disposition: HOME Patient Education Materials: Chest Pain (ED) Referrals: Blair Hodges MD [Primary Care Provider] - Additional Instructions: Follow up with your oncologist and PCP in the next 2-3 days. Return to the Emergency Room if you experience new or worsened symptoms. - Billing Disposition and Condition Condition: STABLE Disposition: Home - Attestation Statements Document Initiated by Forrestibe: Yes Documenting Scribe: Teo Edge Provider For Whom Scribe is Documenting (Include Credential): Josselin Ugalde MD Scribe Attestation: I, Teo Edge, scribed for Josselin Ugalde MD on 11/28/19 at 2018. Scribe Documentation Reviewed: Yes Provider Attestation: The documentation as recorded by the scribe, Teo Edge accurately reflects the service I personally performed and the decisions made by me, Josselin Ugalde MD Status of Scribe Document: Viewed
[2019-11-26 03:29] LABS: HCG Pregnancy 2.05 mIU/mL
[2019-11-26 03:31] LABS: INR 1.09 (0.82-1.09)
[2019-11-26 03:41] LABS: TSH (Thyroid Stimulating Horm) 1.27 mcIU/mL (0.34-5.60)
[2019-11-26] MEDS ORDERED: fentaNYL* 50 MCG/ML 2 ML VIAL (100 MCG VIAL) IV SLOW PU ONE (04:55)
[2019-11-26] MEDS ORDERED: Iohexol 350* (CONTRAST) 500 ML MDV IV ONE (05:24)
[2019-11-26 07:26] VITALS: BP 120/84
== END 2019-11-26 07:24 | disposition home or self-care (01) ==
LOC: ED 02:30
DX: R07.9 Chest pain, unspecified (principal); C50.911 Malignant neoplasm of unspecified site of right female breast; F41.9 Anxiety disorder, unspecified; Z90.49 Acquired absence of other specified parts of digestive tract; Z79.899 Other long term (current) drug therapy; Z88.0 Allergy status to penicillin; Z88.2 Allergy status to sulfonamides
CPT/HCPCS: 36415; 71045; 71275; 80053; 83605; 84443; 84484; 84702; 85025; 85379; 85610; 93005; 96374; 99284; J3010; Q9967

== ENCOUNTER 2019-11-27 17:11 | Emergency (ER) | payer OTHER ==
[2019-11-27 17:38] LABS: INR 1.07 (0.82-1.09)
[2019-11-27 17:44] LABS: ABS Eosinophils 0.2 10^3/ul (0-0.6); ABS Lymphocytes 1.1 10^3/ul (1.0-4.8); ABS Monocytes 0.4 10^3/ul (0-0.8); ABS Neutrophils 3.3 10^3/ul (1.5-7.7); Eosinophil % 3.8 %; Hematocrit 35 % (35-47); Hemoglobin 12.1 g/dL (12.0-16.0); Mean Corpuscular HGB Conc 34 g/dL (31-36); Mean Corpuscular Hemoglobin 30 pg (27-31); Mean Corpuscular Volume 86 fL (80-97); Mean Platelet Volume 7.6 fL (7.4-10.4); Nucleated Red Blood Cells % 0.1; Platelet Count 213 10^3/uL (150-450); Red Cell Distribution Width 15 % (10-15); White Blood Count 5.1 10^3/uL (3.5-10.8)
[2019-11-27 17:49] LABS: ALT 23 U/L (7-52); AST 21 U/L (13-39); Albumin 4.2 g/dL (3.2-5.2); Albumin/Globulin Ratio 1.4 (1-3); Alkaline Phosphatase 88 U/L (34-104); Anion Gap 7 mmol/L (2-11); BUN/Creatinine Ratio 19.5 (8-20); Blood Urea Nitrogen 16 mg/dL (6-24); CO2 Carbon Dioxide 27 mmol/L (22-32); Calcium 9.8 mg/dL (8.6-10.3); Chloride 106 mmol/L (101-111); EGFR African American 94.9 (>60); EGFR Non-African American 78.4 (>60); Globulin 2.9 g/dL (2-4); Glucose 118 mg/dL (70-100); Potassium 3.9 mmol/L (3.5-5.0); Sodium 140 mmol/L (135-145); Total Protein 7.1 g/dL (6.4-8.9)
--- NOTE | 2019-11-27 18:11 | ED ---
HPI Chest Pain - HPI Summary HPI Summary: Patient is a 39 y/o F presenting to the ED for a chief complaint of intermittent right anterior chest pain that radiates to the right shoulder and right arm for the last 2 days. The chest pain is describes as a sharp sensation that is rated as a 10/10 in severity. Taking deep breaths worsens the pain. Patient denies any fever, bilateral LE edema or pain, cough, abdominal pain, nausea, vomiting, or cold symptoms. Patient was seen at [facility] on 11/26/19 for the same symptoms and discharged home to take ibuprofen. At that time, she had a chest x-ray and troponin levels assessed with unremarkable findings. PMHx of blood clots, DM, HTN, or pericarditis is denied. She denies taking aspirin, but she does take oral contraceptives. Any tobacco use is denied. Allergies noted. - History of Current Complaint Chief Complaint: EDChestPainROMI Time Seen by Provider: 11/27/19 17:53 Hx Obtained From: Patient Hx Last Menstrual Period: October 09 Onset/Duration: Atraumatic, Still Present Timing: Intermittent Initial Severity: Severe Current Severity: Severe Pain Intensity: 10 Pain Scale Used: 0-10 Numeric Chest Pain Location: Right Anterior Chest Pain Radiates: Yes Chest Pain Radiates To:: Shoulder - Right, Arm - Right Character: Sharp/Stabbing Aggravating Factor(s): Deep Breaths Alleviating Factor(s): Nothing Associated Signs and Symptoms: Positive: Chest Pain. Negative: Fever, Nausea, Cough, Abdominal Pain, Vomiting, Edema - Bilateral LE - Additional Pertinent History Primary Care Physician: [id number] - Allergy/Home Medications Allergies/Adverse Reactions: Allergies Allergy/AdvReac Type Severity Reaction Status Date / Time Sulfa (Sulfonamide Allergy Severe Hives Verified 11/27/19 17:35 Antibiotics) Penicillins Allergy Intermediate Hives Verified 11/27/19 17:35 PMH/Surg Hx/FS Hx/Imm Hx Previously Healthy: Yes Endocrine/Hematology History: Denies: Hx Bone Marrow Disease, Hx Diabetes, Hx Sickle Cell Disease, Hx Thyroid Disease, Hx Anemia Cardiovascular History: Reports: Other Cardiovascular Problems/Disorders - Lymphedema in left leg Denies: Hx Angina, Hx Cardiomegaly, Hx Congestive Heart Failure, Hx Coronary Artery Disease, Hx Hypertension, Hx Pacemaker/ICD, Hx Peripheral Vascular Disease, Hx Rheumatic Fever, Hx Valvular Heart Disease Respiratory History: Reports: Hx Asthma Denies: Hx Pulmonary Edema, Hx Pulmonary Embolism, Hx Sleep Apnea, Other Respiratory Problems/Disorders GI History: Denies: Hx Cirrhosis, Hx Crohn's Disease, Hx Gastroesophageal Reflux Disease , Hx Hiatal Hernia, Hx Irritable Bowel, Hx Jaundice, Hx Ulcer, Other GI Disorders History: Reports: Other Problems/Disorders - 2 L ovarian cysts, UTIs, miscarriage twins, ectopic Pg. Denies: Hx Kidney Infection, Hx Kidney Stones, Hx Renal Disease Musculoskeletal History: Reports: Hx Arthritis, Other Musculoskeletal History - Lymphedema in left leg Denies: Hx Bursitis, Hx Tendonitis Sensory History: Denies: Hx Cataracts, Hx Contacts or Glasses, Hx Glaucoma, Hx Legally Blind, Hx Deafness, Hx Hearing Aid Opthamlomology History: Denies: Hx Cataracts, Hx Contacts or Glasses, Hx Glaucoma, Hx Legally Blind EENT History: Denies: Hx Deafness Neurological History: Reports: Hx Migraine Denies: Hx Headaches, Hx Nerve Disease, Hx Seizures, Other Neuro Impairments/ Disorders Psychiatric History: Reports: Hx Anxiety Denies: Hx Depression, Hx Panic Disorder, Other Psychiatric Issues/Disorders - Cancer History Cancer Type, Location and Year: 03/07/19 Rt BREAST - on chemo 05/13/19 Hx Chemotherapy: Yes Hx Radiation Therapy: No - Surgical History Surgical History: Yes Surgery Procedure, Year, and Place: CHOLECYSTECTOMY. Lt KNEE - ARTHROSCOPIC. DILLON EARS - SEVERAL EUSTACHIAN TUBES. Lt FOOT - BUNIONECTOMY. Rt BREAST - BIOPSY - W/ CLIP PLACEMENT. Left shoulder. heart surgery. cholecystectomy Hx Anesthesia Reactions: Yes - nausea with gas Infectious Disease History: No Infectious Disease History: Denies: Hx Hepatitis, Traveled Outside the [place] in Last 30 Days - Family History Known Family History: Positive: Hypertension - Social History Occupation: Unemployed Alcohol Use: None Hx Substance Use: No Substance Use Type: Reports: None Hx Tobacco Use: No Smoking Status (MU): Never Smoked Tobacco Have You Smoked in the Last Year: No Review of Systems Negative: Fever Negative: Cough Negative: Abdominal Pain, Vomiting, Nausea Positive: Arthralgia - Right shoulder radiating from the chest, Myalgia - Positive right arm that radiates from the chest; negative bilateral LE pain. Negative: Edema - Bilateral LE All Other Systems Reviewed And Are Negative: Yes Physical Exam - Summary Physical Exam Summary: Constitutional: Well-developed, Well-nourished, Alert. (-) Distressed Skin: Warm, Dry HENT: Normocephalic; Atraumatic Eyes: Conjunctiva normal Neck: Musculoskeletal ROM normal neck. (-) JVD, (-) Stridor, (-) Tracheal deviation Cardio: Rhythm regular, rate normal, Heart sounds normal; Intact distal pulses; The pedal pulses are 2+ and symmetric. Radial pulses are 2+ and symmetric. (-) Murmur Pulmonary/Chest wall: Effort normal. (-) Respiratory distress, (-) Wheezes, (-) Rales Abd: Soft, (-) tenderness, (-) Distension, (-) Guarding, (-) Rebound Musculoskeletal: (-) Edema Lymph: (-) Cervical adenopathy Neuro: Alert, Oriented x3 Psych: Mood and affect Normal Triage Information Reviewed: Yes Vital Signs On Initial Exam: Initial Vitals Temp Pulse Resp BP Pulse Ox 98 F 88 18 139/79 99 11/27/19 17:32 11/27/19 17:32 11/27/19 17:32 11/27/19 17:32 11/27/19 17:32 Vital Signs Reviewed: Yes Procedures - Sedation Patient Received Moderate/Deep Sedation with Procedure: No Diagnostics - Vital Signs Vital Signs Temp Pulse Resp BP Pulse Ox 11/27/19 17:32 98 F 88 18 139/79 99 - Laboratory Lab Results: Lab Results 11/27/19 11/27/19 11/27/19 Range/Units 17:24 17:24 17:24 WBC 5.1 (3.5-10.8) 10^3/uL RBC 4.10 (3.70-4.87) 10^6 /uL Hgb 12.1 (12.0-16.0) g/dL Hct 35 (35-47) % MCV 86 (80-97) fL MCH 30 (27-31) pg MCHC 34 (31-36) g/dL RDW 15 (10-15) % Plt Count 213 (150-450) 10^3/uL MPV 7.6 (7.4-10.4) fL Neut % (Auto) 65.9 % Lymph % (Auto) 22.0 % [place] % (Auto) 7.4 % Eos % (Auto) 3.8 % Baso % (Auto) 0.9 % Absolute Neuts (auto) 3.3 (1.5-7.7) 10^3/ul Absolute Lymphs (auto) 1.1 (1.0-4.8) 10^3/ul Absolute Monos (auto) 0.4 (0-0.8) 10^3/ul Absolute Eos (auto) 0.2 (0-0.6) 10^3/ul Absolute Basos (auto) 0.0 (0-0.2) 10^3/ul Absolute Nucleated RBC 0.0 10^3/ul Nucleated RBC % 0.1 INR (Anticoag Therapy) 1.07 (0.82-1.09) Sodium 140 (135-145) mmol/L Potassium 3.9 (3.5-5.0) mmol/L Chloride 106 (101-111) mmol/L Carbon Dioxide 27 (22-32) mmol/L Anion Gap 7 (2-11) mmol/L BUN 16 (6-24) mg/dL Creatinine 0.82 (0.51-0.95) mg/dL Est GFR ( Amer) 94.9 (>60) Est GFR (Non-Af Amer) 78.4 (>60) BUN/Creatinine Ratio 19.5 (8-20) Glucose 118 H (70-100) mg/dL Calcium 9.8 (8.6-10.3) mg/dL Total Bilirubin 1.00 (0.2-1.0) mg/dL AST 21 (13-39) U/L ALT 23 (7-52) U/L Alkaline Phosphatase 88 (34-104) U/L Troponin I 0.03 H* (<0.03) ng/mL Total Protein 7.1 (6.4-8.9) g/dL Albumin 4.2 (3.2-5.2) g/dL Globulin 2.9 (2-4) g/dL Albumin/Globulin Ratio 1.4 (1-3) Result Diagrams: 11/27/19 17:24 11/27/19 17:24 Lab Statement: Any lab studies that have been ordered have been reviewed, and results considered in the medical decision making process. - EKG 17:15 Cardiac Rate: NL - 84 BPM EKG Rhythm: Sinus Rhythm ST Segment: Normal Ectopy: None Summary of EKG Findings: EKG at 17:15 shows normal sinus rhythm with 84 BPM, no ischemic changes. Dr. Cobos has reviewed and interpreted this EKG. Chest Pain Course/Dx - Course Course Of Treatment: Patient is a 39 y/o F presenting to the ED for a chief complaint of intermittent right anterior chest pain that radiates to the right shoulder and right arm for the last 2 days. The chest pain is describes as a sharp sensation that is rated as a 10/10 in severity. Taking deep breaths worsens the pain. Patient denies any fever, bilateral LE edema or pain, cough, abdominal pain, nausea, vomiting, or cold symptoms. Patient was seen at [facility] on 11/26/19 for the same symptoms and discharged home to take ibuprofen. At that time, she had a chest x-ray and troponin levels assessed with unremarkable findings. PMHx of blood clots, DM, HTN, or pericarditis is denied. She denies taking aspirin, but she does take oral contraceptives. Any tobacco use is denied. Allergies noted. On exam, unremarkable findings. In the ED course, patient was given aspirin 324 mg PO, Tylenol 650 mg PO, and IV fluids. EKG at 17:15 shows normal sinus rhythm with 84 BPM, no ischemic changes. Laboratory abnormal findings: glucose 118 and CRP 28.07. At 18:21, I spoke to Dr. Mahamed Alejandro who agrees to admit the patient to [facility]. Inital troponin reading was incorrectly reported as 0.03, but a corrected value is reported as 0.01. Repeat troponin is 0.00. Patient will be discharged with a diagnosis of chest pain. Follow up with PCP in 1-2 days. - Diagnoses Provider Diagnoses: Chest pain - Provider Notifications Discussed Care Of Patient With: Mahamed Alejandro - At 18:21, I spoke to Dr. Mahamed Alejandro who agrees to admit the patient to [facility]. Time Discussed With Above Provider: 18:21 Instructed by Provider To: Admit As Inpatient Discharge ED - Sign-Out/Discharge Documenting (check all that apply): Patient Departure - Discharge - Discharge Plan Condition: Stable Disposition: HOME Patient Education Materials: Chest Pain (ED) Referrals: Blair Hodges MD [Primary Care Provider] - Additional Instructions: RETURN TO THE EMERGENCY DEPARTMENT FOR CHANGING OR WORSENING SYMPTOMS. Follow up with your primary care physician within 1-2 days. - Billing Disposition and Condition Condition: STABLE Disposition: Home - Attestation Statements Document Initiated by Forrestibe: Yes Documenting Scribe: Joanna Brewster Provider For Whom Kali is Documenting (Include Credential): Ramiro Cobos DO Scribe Attestation: Joanna Tello scribed for Ramiro Cobos DO on 11/27/19 at 2158. Scribe Documentation Reviewed: Yes Provider Attestation: The documentation as recorded by the Joanna maharaj accurately reflects the service I personally performed and the decisions made by Ramiro yoder DO Status of Scribe Document: Viewed
[2019-11-27] MEDS ORDERED: NS 0.9% 1000 ML** 1,000 ML IV ONE (18:17)
[2019-11-27] MEDS ORDERED: Aspirin 81 mg CHEW TAB* 81 MG TAB.CHEW PO ONE (18:17)
[2019-11-27 18:48] LABS: Troponin I 0.01 ng/mL (<0.03)
[2019-11-27] MEDS ORDERED: Acetaminophen TAB* 325 MG PO ONE (19:47)
[2019-11-27 21:17] VITALS: BP 112/80
== END 2019-11-27 21:10 | disposition home or self-care (01) ==
LOC: ED 17:11
DX: R07.9 Chest pain, unspecified (principal); Z85.3 Personal history of malignant neoplasm of breast
CPT/HCPCS: 36415; 80053; 84484; 85025; 85610; 85652; 86140; 93005; 99284; A9270-GY